=== PATIENT | male | born 1990 | race Caucasian/White ===

== ENCOUNTER 2019-04-29 18:11 | Inpatient (IN) | payer MEDICAID, OTHER ==
[~2019-04-29] VITALS: Ht 188 cm; Wt 158.8 kg
[2019-05-16 07:23] VITALS: BP 144/81
== END 2019-05-16 13:12 | disposition home or self-care (01) | DRG 374 ==
LOC: ED 21:52 → EDIP 21:55 → 3NW 22:25 → 5SO 05-13 14:14 → 3NW 05-14 13:00
PROVIDERS: ADMIT Family Medicine; ATTEND Family Medicine
PROC: 0JB83ZX Excision of Abdomen Subcutaneous Tissue and Fascia, Percutaneous Approach, Diagnostic (ICD-10-PCS; 2019-04-30)
PROC: 0DBK8ZX Excision of Ascending Colon, Via Natural or Artificial Opening Endoscopic, Diagnostic (ICD-10-PCS; principal; 2019-05-01)
PROC: 0DBN8ZX Excision of Sigmoid Colon, Via Natural or Artificial Opening Endoscopic, Diagnostic (ICD-10-PCS; 2019-05-01)
PROC: 0DB48ZX Excision of Esophagogastric Junction, Via Natural or Artificial Opening Endoscopic, Diagnostic (ICD-10-PCS; 2019-05-01)
PROC: 0JH63XZ Insertion of Tunneled Vascular Access Device into Chest Subcutaneous Tissue and Fascia, Percutaneous Approach (ICD-10-PCS; 2019-05-06)
PROC: 02HV33Z Insertion of Infusion Device into Superior Vena Cava, Percutaneous Approach (ICD-10-PCS; 2019-05-06)
PROC: B5181ZA Fluoroscopy of Superior Vena Cava using Low Osmolar Contrast, Guidance (ICD-10-PCS; 2019-05-06)
DX: C78.6 Secondary malignant neoplasm of retroperitoneum and peritoneum (principal); N17.0 Acute kidney failure with tubular necrosis; E46 Unspecified protein-calorie malnutrition; Z68.41 Body mass index [BMI] 40.0-44.9, adult; J81.1 Chronic pulmonary edema; R18.8 Other ascites; J98.11 Atelectasis; E86.0 Dehydration; D12.2 Benign neoplasm of ascending colon; E83.42 Hypomagnesemia; F10.21 Alcohol dependence, in remission; G89.3 Neoplasm related pain (acute) (chronic); I10 Essential (primary) hypertension; J20.9 Acute bronchitis, unspecified; K21.9 Gastro-esophageal reflux disease without esophagitis; K44.9 Diaphragmatic hernia without obstruction or gangrene; K64.4 Residual hemorrhoidal skin tags; K64.8 Other hemorrhoids; L40.9 Psoriasis, unspecified; N43.3 Hydrocele, unspecified; Z80.0 Family history of malignant neoplasm of digestive organs; Z87.891 Personal history of nicotine dependence; D12.5 Benign neoplasm of sigmoid colon; E87.70 Fluid overload, unspecified; C80.1 Malignant (primary) neoplasm, unspecified
CPT/HCPCS: 36415; 74022; 76870; 77001; 99285; J3490; J7620; Q0164; 0399T; 36561; 49180; 70450; 70553; 71045; 71260; 71275; 74177; 76705; 76937; 77012; 78306; 80048; 80053; 80074; 81001; 81003; 82378; 82962; 83605; 83615; 83690; 83735; 83880; 84100; 84550; 85025; 86301; 88305; 88341; 88342; 93306; 94640; 96374; 99156; 99157; A9585; G0378; J1100; J1190; J1453; J1650; J1940; J2250; J2405; J2704; J3010; J7120; J9209; Q9967; A9503; C1769; C1788; C9898; J0360; J1447; J1642; J2060; J2270; J2310; J3475; J7030; J7050; J9000; J9208

== ENCOUNTER 2019-08-18 09:00 | Inpatient (IN) | payer MEDICAID ==
[~2019-08-18] VITALS: Ht 188 cm; Wt 133.4 kg
[~2019-08-18 09:00] MED LIST: ALLO300T PO; AMOX1TAB12 PO; CEFD300C37 PO; DILT180C53 PO; DOXY100T PO; FURO40TA6 PO; GABA300C10 PO; GUAI200T37 PO; MAGN400T50 PO; METO-99 PO; OMEP20CA14 PO; ONDA4TAB7 PO; OXYC5TAB2 PO; POTA20TA6 PO; PROC10TA2 PO
[2019-08-19 09:50] VITALS: BP 121/82
[2019-08-19 11:09] LABS: MEAN CORPUSCULAR HEMOGLOBIN 32.7 pg (27.5-34.5); MEAN CORPUSCULAR HGB CONC 32.3 g/dL (33.2-36.2); MEAN CORPUSCULAR VOLUME 101.1 fL (81-97); MEAN PLATELET VOLUME 6.7 fL (7.4-10.4); PLATELET COUNT 473 x10^3/uL (130-400); RED BLOOD COUNT 3.39 x10^6/uL (4.38-5.82); RED CELL DISTRIBUTION WIDTH 22.7 % (9.4-14.8)
[2019-08-19] MEDS: SODIUM CHLORIDE 0.9% 1,000ML IV SCH ×2 (11:13→20:49)
[2019-08-19 11:20] LABS: ALANINE AMINOTRANSFERASE 12 U/L (12-78); ANION GAP 6 mmol/L (5-15); CALCIUM 8.9 mg/dL (8.5-10.1); CHLORIDE 107 mmol/L (98-107); CREATININE 0.78 mg/dL (0.7-1.3)
[2019-08-19 11:22] LABS: ALKALINE PHOSPHATASE 92 U/L (45-117); BILIRUBIN,TOTAL 0.3 mg/dL (0.2-1.0); TOTAL PROTEIN 6.8 g/dL (6.4-8.2)
[2019-08-19 11:34] LABS: BASOPHILS # (AUTO) 0.02 x10^3/uL (0-0.1); BASOPHILS % (AUTO) 0 % (0-1); EOSINOPHILS # (AUTO) 0.02 x10^3/uL (0-0.4); EOSINOPHILS % (AUTO) 0 % (1-7); LYMPHOCYTES # (AUTO) 0.64 x10^3/uL (1-3.4); LYMPHOCYTES % (AUTO) 10 % (22-44); MD MORPH REVIEW ONLY; MONOCYTES # (AUTO) 0.47 x10^3/uL (0.2-0.8); MONOCYTES % (AUTO) 7 % (2-9); NEUTROPHILS # (AUTO) 5.34 x10^3/uL (1.8-6.8); NEUTROPHILS % (AUTO) 82 % (42-75)
[2019-08-19 11:35] LABS: ANISOCYTOSIS 1+; POLYCHROMASIA 1+; STOMATOCYTES 1+; TEAR DROPS 1+
[2019-08-19 11:36] LABS: <PLATELET ESTIMATE> INCREASED; <PLT MORPHOLOGY> NORMAL PLT MORPH
[2019-08-19] MEDS ORDERED: FOSAPREPITANT 150 MG in SODIUM CHLORIDE 0.9% 145 ML IV ONE ×2 (12:30→14:30)
[2019-08-19] MEDS ORDERED: FAMOTIDINE 20 MG/2 ML IVPush SCH (12:30)
[2019-08-19] MEDS ORDERED: ONDANSETRON 16 MG, DEXAMETHASONE 12 MG in SODIUM CHLORIDE 0.9% 50 ML IVPB SCH (12:30)
[2019-08-19] MEDS ORDERED: SODIUM CHLORIDE 0.9% IVPB SCH ×4 (12:45→19:00)
[2019-08-19] MEDS ORDERED: MESNA IVPB SCH ×4 (12:45→19:00)
[2019-08-19] MEDS ORDERED: [UNRECOGNIZED DRUG - OTHER] IV SCH ×2 (12:45→14:45)
[2019-08-19] MEDS ORDERED: LACTATED RINGERS IV SCH ×2 (12:45→14:45)
[2019-08-19] MEDS ORDERED: IFOSFAMIDE IV SCH (13:00)
[2019-08-19] MEDS ORDERED: DOXORUBICIN IV SCH (13:00)
[2019-08-19] MEDS ORDERED: OMEPRAZOLE 20 MG CAPSULE.DR PO PRN (13:00)
[2019-08-19] MEDS ORDERED: SODIUM CHLORIDE 0.9% IV SCH ×2 (13:00)
[2019-08-19 13:07] VITALS: BP 132/94
[2019-08-19] MEDS: ONDANSETRON 16 MG, DEXAMETHASONE 12 MG in SODIUM CHLORIDE 0.9% 50 ML IVPB SCH (14:43)
[2019-08-19] MEDS ORDERED: LIDOCAINE 1%, 10ML ONE (14:51)
[2019-08-19] MEDS: FAMOTIDINE 20 MG/2 ML IVPush SCH (14:56)
[2019-08-19] MEDS: SODIUM CHLORIDE 0.9% 1,000 ML IV SCH ×2 (15:51→21:00)
[2019-08-19] MEDS ORDERED: SODIUM CHLORIDE 0.9% 1,000ML IV SCH (16:00)
[2019-08-19] MEDS: GABAPENTIN 300 MG CAPSULE PO SCH ×2 (16:44→21:00)
[2019-08-19] MEDS: OXYcodone IR 5MG TABLET PO PRN (16:44)
[2019-08-19] MEDS: SODIUM CHLORIDE 0.9% IV SCH ×2 (16:51→16:56)
[2019-08-19] MEDS: IFOSFAMIDE IV SCH (16:51)
[2019-08-19] MEDS: DOXORUBICIN IV SCH (16:56)
[2019-08-19 17:09] LABS: CELLS COUNTED 153
[2019-08-19 21:24] VITALS: BP 101/58
[2019-08-20] MEDS: MESNA IVPB SCH ×4 (01:00→20:00)
[2019-08-20] MEDS: SODIUM CHLORIDE 0.9% IVPB SCH ×4 (01:00→20:00)
[2019-08-20 04:00] VITALS: BP 106/56
[2019-08-20] MEDS: SODIUM CHLORIDE 0.9% 1,000 ML IV SCH ×4 (05:04→18:27)
[2019-08-20 05:28] LABS: BASOPHILS % (AUTO) 0 % (0-1); EOSINOPHILS # (AUTO) 0.02 x10^3/uL (0-0.4); EOSINOPHILS % (AUTO) 1 % (1-7); LYMPHOCYTES % (AUTO) 7 % (22-44); MD NO; MEAN CORPUSCULAR HGB CONC 33.7 g/dL (33.2-36.2); MEAN CORPUSCULAR VOLUME 101.1 fL (81-97); MEAN PLATELET VOLUME 7.2 fL (7.4-10.4); MONOCYTES # (AUTO) 0.04 x10^3/uL (0.2-0.8); MONOCYTES % (AUTO) 1 % (2-9); NEUTROPHILS # (AUTO) 2.72 x10^3/uL (1.8-6.8); NEUTROPHILS % (AUTO) 91 % (42-75); PLATELET COUNT 373 x10^3/uL (130-400); RED BLOOD COUNT 2.99 x10^6/uL (4.38-5.82); RED CELL DISTRIBUTION WIDTH 21.9 % (9.4-14.8)
[2019-08-20 05:31] LABS: ALBUMIN 2.3 g/dL (3.4-5.0); ANION GAP 5 mmol/L (5-15); CHLORIDE 112 mmol/L (98-107)
[2019-08-20 05:34] LABS: ALANINE AMINOTRANSFERASE 13 U/L (12-78); ALKALINE PHOSPHATASE 87 U/L (45-117); BILIRUBIN,TOTAL 0.3 mg/dL (0.2-1.0); CREATININE 0.65 mg/dL (0.7-1.3); TOTAL PROTEIN 5.8 g/dL (6.4-8.2)
[2019-08-20 07:10] VITALS: BP 105/49
[2019-08-20] MEDS: GABAPENTIN 300 MG CAPSULE PO SCH ×4 (08:16→20:01)
[2019-08-20] MEDS: MAGNESIUM OXIDE 400 MG TABLET PO SCH ×2 (08:34→20:00)
[2019-08-20] MEDS: OXYcodone IR 5MG TABLET PO PRN ×2 (08:34→20:01)
[2019-08-20] MEDS ORDERED: MAGNESIUM OXIDE 400 MG TABLET PO SCH (09:00)
[2019-08-20] MEDS: ENOXAPARIN 40 MG/0.4 ML SQ SCH (12:01)
[2019-08-20] MEDS: LORazepam 0.5MG TABLET PO PRN (12:01)
[2019-08-20 12:31] LABS: MICROSCOPIC NOT IND
[2019-08-20 12:34] LABS: CULTURE INDICATED? NO
[2019-08-20 13:32] VITALS: BP 113/73
[2019-08-20] MEDS: FAMOTIDINE 20 MG/2 ML IVPush SCH (14:34)
[2019-08-20] MEDS: ONDANSETRON 16 MG, DEXAMETHASONE 12 MG in SODIUM CHLORIDE 0.9% 50 ML IVPB SCH (14:44)
[2019-08-20] MEDS: SODIUM CHLORIDE 0.9% IV SCH ×2 (16:02→17:30)
[2019-08-20] MEDS: IFOSFAMIDE IV SCH (16:02)
[2019-08-20] MEDS ORDERED: [UNRECOGNIZED DRUG - OTHER] IV SCH ×2 (16:30→16:45)
[2019-08-20] MEDS ORDERED: LACTATED RINGERS IV SCH ×2 (16:30→16:45)
[2019-08-20] MEDS: DOXORUBICIN IV SCH (17:30)
[2019-08-20 19:17] VITALS: BP 107/70
[2019-08-20] MEDS ORDERED: MESNA IVPB SCH (23:00)
[2019-08-20] MEDS ORDERED: SODIUM CHLORIDE 0.9% IVPB SCH (23:00)
[2019-08-21] MEDS: SODIUM CHLORIDE 0.9% 1,000 ML IV SCH ×4 (00:04→23:58)
[2019-08-21 02:58] VITALS: BP 105/65
[2019-08-21] MEDS: GABAPENTIN 300 MG CAPSULE PO SCH ×4 (05:49→20:05)
[2019-08-21 06:10] LABS: MEAN CORPUSCULAR HEMOGLOBIN 33.5 pg (27.5-34.5); MEAN CORPUSCULAR HGB CONC 32.6 g/dL (33.2-36.2); PLATELET COUNT 419 x10^3/uL (130-400); RED BLOOD COUNT 2.92 x10^6/uL (4.38-5.82); RED CELL DISTRIBUTION WIDTH 21.9 % (9.4-14.8)
[2019-08-21 06:18] LABS: ALBUMIN 2.1 g/dL (3.4-5.0); ANION GAP 4 mmol/L (5-15); CALCIUM 7.8 mg/dL (8.5-10.1); CHLORIDE 114 mmol/L (98-107)
[2019-08-21 06:21] LABS: ALANINE AMINOTRANSFERASE 11 U/L (12-78); ALKALINE PHOSPHATASE 69 U/L (45-117); BILIRUBIN,TOTAL 0.2 mg/dL (0.2-1.0); TOTAL PROTEIN 5.2 g/dL (6.4-8.2)
[2019-08-21 06:40] LABS: MD YES
[2019-08-21 07:46] LABS: LYMPH#(MANUAL) 0.65 x10^3/uL (1-3.4); LYMPHS% (MANUAL) 10 % (22-44); MONOS#(MANUAL) 0.39 x10^3/uL (0.3-2.7); MONOS% (MANUAL) 6 % (2-9); SEG#(MANUAL) 5.46 x10^3/uL (1.8-6.8); SEGS% (MANUAL) 84 % (42-75)
[2019-08-21 07:47] LABS: <PLATELET ESTIMATE> INCREASED; <PLT MORPHOLOGY> NORMAL PLT MORPH; ANISOCYTOSIS 1+; POLYCHROMASIA 1+; TOXIC GRAN 1+
[2019-08-21 08:47] VITALS: BP 112/71
[2019-08-21] MEDS: ENOXAPARIN 40 MG/0.4 ML SQ SCH (11:39)
[2019-08-21 14:25] VITALS: BP 107/68
[2019-08-21] MEDS: ONDANSETRON 16 MG, DEXAMETHASONE 12 MG in SODIUM CHLORIDE 0.9% 50 ML IVPB SCH (14:57)
[2019-08-21] MEDS: FAMOTIDINE 20 MG/2 ML IVPush SCH (14:58)
[2019-08-21] MEDS: SODIUM CHLORIDE 0.9% IVPB SCH ×2 (15:36→19:00)
[2019-08-21] MEDS: MESNA IVPB SCH ×2 (15:36→19:00)
[2019-08-21] MEDS: SODIUM CHLORIDE 0.9% IV SCH ×2 (16:14→18:28)
[2019-08-21] MEDS: IFOSFAMIDE IV SCH (16:14)
[2019-08-21] MEDS ORDERED: LACTATED RINGERS IV ONE (17:15)
[2019-08-21] MEDS ORDERED: [UNRECOGNIZED DRUG - OTHER] IV ONE (17:15)
[2019-08-21] MEDS: DOXORUBICIN IV SCH (18:28)
[2019-08-21 19:11] VITALS: BP 124/71
[2019-08-21] MEDS: OXYcodone IR 5MG TABLET PO PRN (20:04)
[2019-08-21] MEDS ORDERED: SODIUM CHLORIDE 0.9% IVPB SCH (23:00)
[2019-08-21] MEDS ORDERED: MESNA IVPB SCH (23:00)
[2019-08-22 01:11] VITALS: BP 117/69
[2019-08-22] MEDS: GABAPENTIN 300 MG CAPSULE PO SCH ×4 (05:08→21:47)
[2019-08-22 05:43] LABS: BASOPHILS % (AUTO) 0 % (0-1); EOSINOPHILS # (AUTO) 0.04 x10^3/uL (0-0.4); EOSINOPHILS % (AUTO) 1 % (1-7); LYMPHOCYTES # (AUTO) 0.47 x10^3/uL (1-3.4); LYMPHOCYTES % (AUTO) 8 % (22-44); MD NO; MEAN CORPUSCULAR HEMOGLOBIN 33.3 pg (27.5-34.5); MEAN CORPUSCULAR HGB CONC 32.3 g/dL (33.2-36.2); MEAN CORPUSCULAR VOLUME 103.3 fL (81-97); MEAN PLATELET VOLUME 7.2 fL (7.4-10.4); MONOCYTES # (AUTO) 0.39 x10^3/uL (0.2-0.8); MONOCYTES % (AUTO) 7 % (2-9); NEUTROPHILS # (AUTO) 5.11 x10^3/uL (1.8-6.8); NEUTROPHILS % (AUTO) 85 % (42-75); PLATELET COUNT 409 x10^3/uL (130-400); RED BLOOD COUNT 2.99 x10^6/uL (4.38-5.82); RED CELL DISTRIBUTION WIDTH 21.8 % (9.4-14.8)
[2019-08-22 05:55] LABS: CHLORIDE 113 mmol/L (98-107)
[2019-08-22 06:00] LABS: ALANINE AMINOTRANSFERASE 11 U/L (12-78); ALBUMIN 2.1 g/dL (3.4-5.0); ALKALINE PHOSPHATASE 69 U/L (45-117); ANION GAP 5 mmol/L (5-15); BILIRUBIN,TOTAL 0.4 mg/dL (0.2-1.0); CALCIUM 7.6 mg/dL (8.5-10.1); CREATININE 0.49 mg/dL (0.7-1.3); TOTAL PROTEIN 4.9 g/dL (6.4-8.2)
[2019-08-22 07:49] VITALS: BP 119/61
[2019-08-22] MEDS ORDERED: MAGNESIUM OXIDE 400 MG TABLET PO SCH (09:00)
[2019-08-22] MEDS: MAGNESIUM OXIDE 400 MG TABLET PO SCH ×2 (10:09→21:47)
[2019-08-22] MEDS: OXYcodone IR 5MG TABLET PO PRN (10:12)
[2019-08-22] MEDS: FAMOTIDINE 20 MG/2 ML IVPush SCH (10:20)
[2019-08-22] MEDS: SODIUM CHLORIDE 0.9% 1,000 ML IV SCH ×2 (10:58→21:47)
[2019-08-22] MEDS: LORazepam 0.5MG TABLET PO PRN (11:14)
[2019-08-22] MEDS: ENOXAPARIN 40 MG/0.4 ML SQ SCH (12:50)
[2019-08-22 14:02] VITALS: BP 85/51
[2019-08-22 14:30] VITALS: BP 80/52
[2019-08-22 16:00] VITALS: BP 107/42
[2019-08-22] MEDS: ONDANSETRON 16 MG, DEXAMETHASONE 12 MG in SODIUM CHLORIDE 0.9% 50 ML IVPB SCH (16:16)
[2019-08-22] MEDS: SODIUM CHLORIDE 0.9% IVPB SCH ×2 (17:04→21:47)
[2019-08-22] MEDS: MESNA IVPB SCH ×2 (17:04→21:47)
[2019-08-22] MEDS: SODIUM CHLORIDE 0.9% IV SCH (17:43)
[2019-08-22] MEDS: IFOSFAMIDE IV SCH (17:43)
[2019-08-22 19:17] VITALS: BP 104/58
[2019-08-22] MEDS ORDERED: MESNA IVPB SCH (23:00)
[2019-08-22] MEDS ORDERED: SODIUM CHLORIDE 0.9% IVPB SCH (23:00)
[2019-08-23] MEDS: SODIUM CHLORIDE 0.9% 1,000 ML IV SCH ×4 (01:33→20:02)
[2019-08-23] MEDS: SODIUM CHLORIDE 0.9% IVPB SCH ×3 (01:34→20:56)
[2019-08-23] MEDS: MESNA IVPB SCH ×3 (01:34→20:56)
[2019-08-23 05:46] VITALS: BP 106/62
[2019-08-23] MEDS: GABAPENTIN 300 MG CAPSULE PO SCH ×4 (05:46→20:56)
[2019-08-23] MEDS: LORazepam 0.5MG TABLET PO PRN ×2 (05:52→16:51)
[2019-08-23 06:04] LABS: BASOPHILS # (AUTO) 0.06 x10^3/uL (0-0.1); BASOPHILS % (AUTO) 1 % (0-1); EOSINOPHILS # (AUTO) 0.02 x10^3/uL (0-0.4); EOSINOPHILS % (AUTO) 0 % (1-7); LYMPHOCYTES # (AUTO) 0.57 x10^3/uL (1-3.4); LYMPHOCYTES % (AUTO) 8 % (22-44); MD NO; MEAN CORPUSCULAR HEMOGLOBIN 33.8 pg (27.5-34.5); MEAN CORPUSCULAR HGB CONC 32.5 g/dL (33.2-36.2); MEAN PLATELET VOLUME 7.4 fL (7.4-10.4); MONOCYTES # (AUTO) 0.18 x10^3/uL (0.2-0.8); MONOCYTES % (AUTO) 3 % (2-9); NEUTROPHILS # (AUTO) 6.16 x10^3/uL (1.8-6.8); NEUTROPHILS % (AUTO) 88 % (42-75); PLATELET COUNT 398 x10^3/uL (130-400); RED BLOOD COUNT 2.86 x10^6/uL (4.38-5.82); RED CELL DISTRIBUTION WIDTH 20.1 % (9.4-14.8)
[2019-08-23 06:10] LABS: CHLORIDE 114 mmol/L (98-107)
[2019-08-23 06:21] LABS: ALANINE AMINOTRANSFERASE 12 U/L (12-78); ALBUMIN 2.1 g/dL (3.4-5.0); ALKALINE PHOSPHATASE 67 U/L (45-117); ANION GAP 5 mmol/L (5-15); BILIRUBIN,TOTAL 0.5 mg/dL (0.2-1.0); CALCIUM 7.8 mg/dL (8.5-10.1); CREATININE 0.48 mg/dL (0.7-1.3); TOTAL PROTEIN 4.9 g/dL (6.4-8.2)
[2019-08-23 07:00] VITALS: BP 107/75
[2019-08-23] MEDS: MAGNESIUM OXIDE 400 MG TABLET PO SCH (08:44)
[2019-08-23] MEDS: ENOXAPARIN 40 MG/0.4 ML SQ SCH (11:14)
[2019-08-23] MEDS: OXYcodone IR 5MG TABLET PO PRN (11:21)
[2019-08-23 12:34] VITALS: BP 111/64
[2019-08-23] MEDS: FAMOTIDINE 20 MG/2 ML IVPush SCH (15:00)
[2019-08-23] MEDS: ONDANSETRON 16 MG, DEXAMETHASONE 12 MG in SODIUM CHLORIDE 0.9% 50 ML IVPB SCH (15:05)
[2019-08-23] MEDS: SODIUM CHLORIDE 0.9% IV SCH (16:51)
[2019-08-23] MEDS: IFOSFAMIDE IV SCH (16:51)
[2019-08-23 19:58] VITALS: BP 103/65
[2019-08-24 01:07] VITALS: BP 109/64
[2019-08-24] MEDS: MESNA IVPB SCH (01:18)
[2019-08-24] MEDS: SODIUM CHLORIDE 0.9% IVPB SCH (01:18)
[2019-08-24] MEDS: GABAPENTIN 300 MG CAPSULE PO SCH ×2 (05:36→11:27)
[2019-08-24] MEDS: LORazepam 0.5MG TABLET PO PRN (05:36)
[2019-08-24 05:53] LABS: MEAN CORPUSCULAR HEMOGLOBIN 33.5 pg (27.5-34.5); MEAN CORPUSCULAR HGB CONC 32.7 g/dL (33.2-36.2); MEAN CORPUSCULAR VOLUME 102.5 fL (81-97); MEAN PLATELET VOLUME 7.1 fL (7.4-10.4); PLATELET COUNT 377 x10^3/uL (130-400); RED BLOOD COUNT 2.87 x10^6/uL (4.38-5.82); RED CELL DISTRIBUTION WIDTH 19.6 % (9.4-14.8)
[2019-08-24 05:59] LABS: ALBUMIN 2.2 g/dL (3.4-5.0); ANION GAP 6 mmol/L (5-15); CALCIUM 7.8 mg/dL (8.5-10.1); CHLORIDE 111 mmol/L (98-107)
[2019-08-24 06:03] LABS: ALANINE AMINOTRANSFERASE 12 U/L (12-78); ALKALINE PHOSPHATASE 68 U/L (45-117); BILIRUBIN,TOTAL 0.4 mg/dL (0.2-1.0); CREATININE 0.54 mg/dL (0.7-1.3); TOTAL PROTEIN 5.1 g/dL (6.4-8.2)
[2019-08-24 06:10] LABS: BASOPHILS # (AUTO) 0.09 x10^3/uL (0-0.1); BASOPHILS % (AUTO) 2 % (0-1); EOSINOPHILS # (AUTO) 0.03 x10^3/uL (0-0.4); EOSINOPHILS % (AUTO) 1 % (1-7); LYMPHOCYTES # (AUTO) 0.44 x10^3/uL (1-3.4); LYMPHOCYTES % (AUTO) 8 % (22-44); MD SCAN; MONOCYTES # (AUTO) 0.04 x10^3/uL (0.2-0.8); MONOCYTES % (AUTO) 1 % (2-9); NEUTROPHILS # (AUTO) 4.96 x10^3/uL (1.8-6.8); NEUTROPHILS % (AUTO) 89 % (42-75)
[2019-08-24] MEDS: SODIUM CHLORIDE 0.9% 1,000 ML IV SCH ×2 (07:26→11:28)
[2019-08-24 07:46] VITALS: BP 110/61
[2019-08-24] MEDS ORDERED: ONDANSETRON 2MG/ML, 2ML IVPush PRN (08:00)
[2019-08-24] MEDS ORDERED: LIDOCAINE 1%, 10ML ONE (10:07)
[2019-08-24] MEDS: ENOXAPARIN 40 MG/0.4 ML SQ SCH (11:27)
[2019-08-24 14:32] VITALS: BP 105/57
== END 2019-08-24 14:43 | disposition home or self-care (01) | DRG 343 ==
LOC: 4NW 08-19 09:23
PROVIDERS: ADMIT Internal Medicine Hematology & Oncology; ATTEND Internal Medicine Hematology & Oncology
PROC: 0W9G3ZZ Drainage of Peritoneal Cavity, Percutaneous Approach (ICD-10-PCS; principal; 2019-08-20)
PROC: 0W9G3ZZ Drainage of Peritoneal Cavity, Percutaneous Approach (ICD-10-PCS; 2019-08-24)
DX: C49.9 Malignant neoplasm of connective and soft tissue, unspecified (principal); C78.6 Secondary malignant neoplasm of retroperitoneum and peritoneum; C79.89 Secondary malignant neoplasm of other specified sites; E46 Unspecified protein-calorie malnutrition; R18.8 Other ascites; E83.42 Hypomagnesemia; K21.9 Gastro-esophageal reflux disease without esophagitis; D64.9 Anemia, unspecified; Z80.0 Family history of malignant neoplasm of digestive organs; Z79.899 Other long term (current) drug therapy
CPT/HCPCS: J3490 ×2; 36415; 49083; 80053; 81003; 83735; 85025; 88112; 88305; 89051; 93005; 93306; G0378; J1100; J1190; J1453; J1650; J2405; J7120; J9000; J9209; J7030; J7050; J9208

== ENCOUNTER 2019-09-14 08:00 | Inpatient (IN) | payer MEDICAID ==
[~2019-09-14] VITALS: Ht 188 cm; Wt 115.8 kg
[2019-09-14 09:52] VITALS: BP 118/80
[2019-09-14] MEDS ORDERED: SODIUM CHLORIDE 0.9% 1,000 ML IV ONE (10:00)
[2019-09-14 10:12] LABS: ALANINE AMINOTRANSFERASE 16 U/L (12-78); ALBUMIN 2.1 g/dL (3.4-5.0); ANION GAP 5 mmol/L (5-15); CALCIUM 8.3 mg/dL (8.5-10.1); CHLORIDE 109 mmol/L (98-107); CREATININE 0.62 mg/dL (0.7-1.3)
[2019-09-14 10:14] LABS: ALKALINE PHOSPHATASE 67 U/L (45-117); BILIRUBIN,TOTAL 0.2 mg/dL (0.2-1.0); TOTAL PROTEIN 5.6 g/dL (6.4-8.2)
[2019-09-14 10:16] LABS: BASOPHILS # (AUTO) 0.02 x10^3/uL (0-0.1); BASOPHILS % (AUTO) 0 % (0-1); EOSINOPHILS % (AUTO) 0 % (1-7); LYMPHOCYTES # (AUTO) 0.66 x10^3/uL (1-3.4); LYMPHOCYTES % (AUTO) 8 % (22-44); MD NO; MEAN CORPUSCULAR HEMOGLOBIN 33.5 pg (27.5-34.5); MEAN CORPUSCULAR HGB CONC 32.3 g/dL (33.2-36.2); MEAN CORPUSCULAR VOLUME 103.5 fL (81-97); MEAN PLATELET VOLUME 6.6 fL (7.4-10.4); MONOCYTES # (AUTO) 0.47 x10^3/uL (0.2-0.8); MONOCYTES % (AUTO) 6 % (2-9); NEUTROPHILS % (AUTO) 86 % (42-75); PLATELET COUNT 594 x10^3/uL (130-400); RED BLOOD COUNT 2.87 x10^6/uL (4.38-5.82); RED CELL DISTRIBUTION WIDTH 20.2 % (9.4-14.8)
[2019-09-14] MEDS ORDERED: OMEPRAZOLE 20 MG CAPSULE.DR PO PRN (11:30)
[2019-09-14] MEDS ORDERED: OXYcodone 5 MG/5 ML ORAL.SOL UDC PO PRN (11:30)
[2019-09-14] MEDS: ENOXAPARIN 40 MG/0.4 ML SQ SCH (11:41)
[2019-09-14 12:48] VITALS: BP 113/76
[2019-09-14] MEDS: SODIUM CHLORIDE 0.9% 1,000 ML IV SCH (13:57)
[2019-09-14] MEDS: ONDANSETRON 16 MG, DEXAMETHASONE 12 MG in SODIUM CHLORIDE 0.9% 50 ML IVPB SCH (13:57)
[2019-09-14] MEDS: MESNA IVPB SCH ×3 (14:40→23:32)
[2019-09-14] MEDS: SODIUM CHLORIDE 0.9% IVPB SCH ×4 (14:40→23:32)
[2019-09-14] MEDS: IFOSFAMIDE IV SCH (16:00)
[2019-09-14] MEDS: SODIUM CHLORIDE 0.9% IV SCH (16:00)
[2019-09-14] MEDS ORDERED: SODIUM CHLORIDE 0.9% 1,000 ML IV SCH ×2 (18:00)
[2019-09-14] MEDS ORDERED: ETOPOSIDE IVPB SCH (18:00)
[2019-09-14] MEDS ORDERED: SODIUM CHLORIDE 0.9% IVPB SCH (18:00)
[2019-09-14 18:48] VITALS: BP 153/77
[2019-09-14] MEDS: ETOPOSIDE IVPB SCH (21:44)
[2019-09-15 03:00] VITALS: BP 124/74
[2019-09-15 04:46] LABS: BASOPHILS # (AUTO) 0.01 x10^3/uL (0-0.1); BASOPHILS % (AUTO) 0 % (0-1); EOSINOPHILS # (AUTO) 0.06 x10^3/uL (0-0.4); EOSINOPHILS % (AUTO) 1 % (1-7); LYMPHOCYTES # (AUTO) 0.39 x10^3/uL (1-3.4); LYMPHOCYTES % (AUTO) 6 % (22-44); MD NO; MEAN CORPUSCULAR HEMOGLOBIN 34.3 pg (27.5-34.5); MEAN CORPUSCULAR HGB CONC 32.7 g/dL (33.2-36.2); MEAN PLATELET VOLUME 6.8 fL (7.4-10.4); MONOCYTES # (AUTO) 0.18 x10^3/uL (0.2-0.8); MONOCYTES % (AUTO) 3 % (2-9); NEUTROPHILS # (AUTO) 5.91 x10^3/uL (1.8-6.8); NEUTROPHILS % (AUTO) 90 % (42-75); PLATELET COUNT 538 x10^3/uL (130-400); RED BLOOD COUNT 2.64 x10^6/uL (4.38-5.82); RED CELL DISTRIBUTION WIDTH 19.6 % (9.4-14.8)
[2019-09-15 04:59] LABS: ALANINE AMINOTRANSFERASE 17 U/L (12-78); ALBUMIN 1.8 g/dL (3.4-5.0); ANION GAP 5 mmol/L (5-15); CALCIUM 7.7 mg/dL (8.5-10.1); CHLORIDE 113 mmol/L (98-107); CREATININE 0.59 mg/dL (0.7-1.3)
[2019-09-15 05:01] LABS: ALKALINE PHOSPHATASE 61 U/L (45-117); BILIRUBIN,TOTAL 0.3 mg/dL (0.2-1.0); TOTAL PROTEIN 5.1 g/dL (6.4-8.2)
[2019-09-15] MEDS: OXYcodone IR 5MG TABLET PO PRN ×2 (06:14→14:34)
[2019-09-15 06:52] VITALS: BP 111/71
[2019-09-15] MEDS: SODIUM CHLORIDE 0.9% 1,000 ML IV SCH ×4 (08:53→22:03)
[2019-09-15] MEDS: GABAPENTIN 300 MG CAPSULE PO PRN ×2 (08:53→19:58)
[2019-09-15] MEDS ORDERED: LIDOCAINE 1%, 10ML ONE (09:28)
[2019-09-15] MEDS: ONDANSETRON 2MG/ML, 2ML IVPush PRN (09:36)
[2019-09-15 11:24] LABS: MICROSCOPIC NOT IND
[2019-09-15] MEDS ORDERED: ALBUMIN HUMAN 25% IV ONE (12:00)
[2019-09-15 14:06] VITALS: BP 101/60
[2019-09-15] MEDS: ENOXAPARIN 40 MG/0.4 ML SQ SCH (14:27)
[2019-09-15] MEDS: ONDANSETRON 16 MG, DEXAMETHASONE 12 MG in SODIUM CHLORIDE 0.9% 50 ML IVPB SCH (14:27)
[2019-09-15] MEDS: SODIUM CHLORIDE 0.9% IVPB SCH ×4 (15:04→23:14)
[2019-09-15] MEDS: MESNA IVPB SCH ×3 (15:04→23:14)
[2019-09-15] MEDS: IFOSFAMIDE IV SCH (15:56)
[2019-09-15] MEDS: SODIUM CHLORIDE 0.9% IV SCH (15:56)
[2019-09-15 19:36] VITALS: BP 103/63
[2019-09-15] MEDS: ETOPOSIDE IVPB SCH (20:50)
[2019-09-16 01:44] VITALS: BP 103/66
[2019-09-16 04:51] LABS: BASOPHILS # (AUTO) 0.01 x10^3/uL (0-0.1); BASOPHILS % (AUTO) 0 % (0-1); EOSINOPHILS # (AUTO) 0.01 x10^3/uL (0-0.4); EOSINOPHILS % (AUTO) 0 % (1-7); LYMPHOCYTES % (AUTO) 11 % (22-44); MD NO; MEAN CORPUSCULAR HEMOGLOBIN 33.9 pg (27.5-34.5); MEAN CORPUSCULAR HGB CONC 32.1 g/dL (33.2-36.2); MEAN CORPUSCULAR VOLUME 105.6 fL (81-97); MEAN PLATELET VOLUME 6.6 fL (7.4-10.4); MONOCYTES # (AUTO) 0.27 x10^3/uL (0.2-0.8); MONOCYTES % (AUTO) 6 % (2-9); NEUTROPHILS # (AUTO) 3.99 x10^3/uL (1.8-6.8); NEUTROPHILS % (AUTO) 84 % (42-75); PLATELET COUNT 425 x10^3/uL (130-400); RED BLOOD COUNT 2.65 x10^6/uL (4.38-5.82); RED CELL DISTRIBUTION WIDTH 19.2 % (9.4-14.8)
[2019-09-16 04:59] LABS: ALBUMIN 2.4 g/dL (3.4-5.0); ANION GAP 7 mmol/L (5-15); CALCIUM 7.7 mg/dL (8.5-10.1); CHLORIDE 114 mmol/L (98-107)
[2019-09-16 05:03] LABS: ALANINE AMINOTRANSFERASE 14 U/L (12-78); ALKALINE PHOSPHATASE 51 U/L (45-117); BILIRUBIN,TOTAL 0.3 mg/dL (0.2-1.0); CREATININE 0.61 mg/dL (0.7-1.3)
[2019-09-16 06:08] LABS: MICROSCOPIC NOT IND
[2019-09-16 07:16] VITALS: BP 106/63
[2019-09-16] MEDS: SODIUM CHLORIDE 0.9% 1,000 ML IV SCH ×4 (10:38→21:55)
[2019-09-16] MEDS: OXYcodone IR 5MG TABLET PO PRN ×2 (10:39→18:31)
[2019-09-16 12:30] VITALS: BP 107/64
[2019-09-16] MEDS: ONDANSETRON 16 MG, DEXAMETHASONE 12 MG in SODIUM CHLORIDE 0.9% 50 ML IVPB SCH (14:02)
[2019-09-16] MEDS: MESNA IVPB SCH ×3 (14:44→22:59)
[2019-09-16] MEDS: SODIUM CHLORIDE 0.9% IVPB SCH ×4 (14:44→22:59)
[2019-09-16] MEDS: ENOXAPARIN 40 MG/0.4 ML SQ SCH (14:51)
[2019-09-16] MEDS: SODIUM CHLORIDE 0.9% IV SCH (15:16)
[2019-09-16] MEDS: IFOSFAMIDE IV SCH (15:16)
[2019-09-16] MEDS: ETOPOSIDE IVPB SCH (20:24)
[2019-09-16 21:55] VITALS: BP 122/76
[2019-09-16 23:57] VITALS: BP 114/75
[2019-09-17 04:14] LABS: BASOPHILS % (AUTO) 2 % (0-1); EOSINOPHILS % (AUTO) 0 % (1-7); LYMPHOCYTES # (AUTO) 0.45 x10^3/uL (1-3.4); LYMPHOCYTES % (AUTO) 10 % (22-44); MD NO; MEAN CORPUSCULAR HGB CONC 32.3 g/dL (33.2-36.2); MEAN CORPUSCULAR VOLUME 105.1 fL (81-97); MEAN PLATELET VOLUME 6.7 fL (7.4-10.4); MONOCYTES # (AUTO) 0.21 x10^3/uL (0.2-0.8); MONOCYTES % (AUTO) 5 % (2-9); NEUTROPHILS # (AUTO) 3.71 x10^3/uL (1.8-6.8); NEUTROPHILS % (AUTO) 83 % (42-75); PLATELET COUNT 444 x10^3/uL (130-400); RED CELL DISTRIBUTION WIDTH 18.8 % (9.4-14.8)
[2019-09-17 04:22] LABS: MICROSCOPIC NOT IND
[2019-09-17 04:25] LABS: ALANINE AMINOTRANSFERASE 15 U/L (12-78); ALBUMIN 2.1 g/dL (3.4-5.0); ANION GAP 4 mmol/L (5-15); CALCIUM 7.8 mg/dL (8.5-10.1); CHLORIDE 114 mmol/L (98-107)
[2019-09-17 04:27] LABS: ALKALINE PHOSPHATASE 52 U/L (45-117); BILIRUBIN,TOTAL 0.3 mg/dL (0.2-1.0); TOTAL PROTEIN 5.1 g/dL (6.4-8.2)
[2019-09-17 06:49] VITALS: BP 122/77
[2019-09-17] MEDS: ONDANSETRON 2MG/ML, 2ML IVPush PRN (10:17)
[2019-09-17] MEDS: SODIUM CHLORIDE 0.9% 1,000 ML IV SCH ×3 (10:17→18:36)
[2019-09-17] MEDS: OXYcodone IR 5MG TABLET PO PRN (10:18)
[2019-09-17 12:42] VITALS: BP 121/73
[2019-09-17] MEDS: ONDANSETRON 16 MG, DEXAMETHASONE 12 MG in SODIUM CHLORIDE 0.9% 50 ML IVPB SCH (13:51)
[2019-09-17] MEDS: MESNA IVPB SCH ×3 (14:31→23:03)
[2019-09-17] MEDS: SODIUM CHLORIDE 0.9% IVPB SCH ×4 (14:31→23:03)
[2019-09-17] MEDS: ENOXAPARIN 40 MG/0.4 ML SQ SCH (14:33)
[2019-09-17] MEDS: IFOSFAMIDE IV SCH (15:26)
[2019-09-17] MEDS: SODIUM CHLORIDE 0.9% IV SCH (15:26)
[2019-09-17] MEDS: ETOPOSIDE IVPB SCH (20:27)
[2019-09-17 20:53] VITALS: BP 114/71
[2019-09-18 00:43] VITALS: BP 118/76
[2019-09-18 06:49] LABS: MEAN CORPUSCULAR HEMOGLOBIN 34.1 pg (27.5-34.5); MEAN CORPUSCULAR HGB CONC 32.4 g/dL (33.2-36.2); MEAN CORPUSCULAR VOLUME 105.1 fL (81-97); MEAN PLATELET VOLUME 6.7 fL (7.4-10.4); PLATELET COUNT 404 x10^3/uL (130-400); RED BLOOD COUNT 2.72 x10^6/uL (4.38-5.82); RED CELL DISTRIBUTION WIDTH 18.3 % (9.4-14.8)
[2019-09-18 06:53] LABS: BASOPHILS # (AUTO) 0.07 x10^3/uL (0-0.1); BASOPHILS % (AUTO) 2 % (0-1); EOSINOPHILS # (AUTO) 0.02 x10^3/uL (0-0.4); EOSINOPHILS % (AUTO) 0 % (1-7); LYMPHOCYTES # (AUTO) 0.41 x10^3/uL (1-3.4); LYMPHOCYTES % (AUTO) 10 % (22-44); MD NO; MONOCYTES # (AUTO) 0.11 x10^3/uL (0.2-0.8); MONOCYTES % (AUTO) 3 % (2-9); NEUTROPHILS # (AUTO) 3.57 x10^3/uL (1.8-6.8); NEUTROPHILS % (AUTO) 86 % (42-75)
[2019-09-18 06:58] LABS: ALANINE AMINOTRANSFERASE 12 U/L (12-78); ANION GAP 4 mmol/L (5-15); CALCIUM 8.1 mg/dL (8.5-10.1); CHLORIDE 116 mmol/L (98-107); CREATININE 0.55 mg/dL (0.7-1.3)
[2019-09-18 07:00] LABS: ALKALINE PHOSPHATASE 50 U/L (45-117); BILIRUBIN,TOTAL 0.5 mg/dL (0.2-1.0); TOTAL PROTEIN 4.8 g/dL (6.4-8.2)
[2019-09-18 07:05] VITALS: BP 131/79
[2019-09-18] MEDS: OXYcodone IR 5MG TABLET PO PRN ×2 (07:15→13:16)
[2019-09-18] MEDS: SODIUM CHLORIDE 0.9% 1,000 ML IV SCH ×2 (09:24→22:07)
[2019-09-18 13:00] VITALS: BP 121/75
[2019-09-18 13:25] LABS: MICROSCOPIC NOT IND
[2019-09-18] MEDS: ONDANSETRON 16 MG, DEXAMETHASONE 12 MG in SODIUM CHLORIDE 0.9% 50 ML IVPB SCH (14:41)
[2019-09-18] MEDS: ENOXAPARIN 40 MG/0.4 ML SQ SCH (14:42)
[2019-09-18 19:10] VITALS: BP 100/68
[2019-09-18] MEDS: ETOPOSIDE IVPB SCH (20:14)
[2019-09-18] MEDS: SODIUM CHLORIDE 0.9% IVPB SCH (20:14)
[2019-09-18] MEDS: GABAPENTIN 300 MG CAPSULE PO PRN (21:03)
[2019-09-19 00:25] VITALS: BP 120/71
[2019-09-19 04:57] LABS: MICROSCOPIC AUTO
[2019-09-19 08:01] VITALS: BP 108/66
[2019-09-19 08:14] LABS: BASOPHILS # (AUTO) 0.02 x10^3/uL (0-0.1); BASOPHILS % (AUTO) 1 % (0-1); EOSINOPHILS # (AUTO) 0.02 x10^3/uL (0-0.4); EOSINOPHILS % (AUTO) 1 % (1-7); LYMPHOCYTES # (AUTO) 0.47 x10^3/uL (1-3.4); LYMPHOCYTES % (AUTO) 11 % (22-44); MD NO; MEAN CORPUSCULAR HEMOGLOBIN 33.3 pg (27.5-34.5); MEAN CORPUSCULAR HGB CONC 32.5 g/dL (33.2-36.2); MEAN CORPUSCULAR VOLUME 102.7 fL (81-97); MEAN PLATELET VOLUME 6.4 fL (7.4-10.4); MONOCYTES # (AUTO) 0.04 x10^3/uL (0.2-0.8); MONOCYTES % (AUTO) 1 % (2-9); NEUTROPHILS # (AUTO) 3.64 x10^3/uL (1.8-6.8); NEUTROPHILS % (AUTO) 87 % (42-75); PLATELET COUNT 414 x10^3/uL (130-400); RED BLOOD COUNT 2.73 x10^6/uL (4.38-5.82); RED CELL DISTRIBUTION WIDTH 17.7 % (9.4-14.8)
[2019-09-19 08:24] LABS: ALBUMIN 2.1 g/dL (3.4-5.0); ANION GAP 5 mmol/L (5-15); CALCIUM 8.3 mg/dL (8.5-10.1); CHLORIDE 114 mmol/L (98-107)
[2019-09-19 08:28] LABS: ALANINE AMINOTRANSFERASE 14 U/L (12-78); ALKALINE PHOSPHATASE 54 U/L (45-117); BILIRUBIN,TOTAL 0.4 mg/dL (0.2-1.0); CREATININE 0.59 mg/dL (0.7-1.3)
== END 2019-09-19 12:30 | disposition home or self-care (01) | DRG 696 ==
LOC: 4NW 08:51
PROVIDERS: ADMIT Internal Medicine Hematology & Oncology; ATTEND Internal Medicine Hematology & Oncology
PROC: 0W9G3ZZ Drainage of Peritoneal Cavity, Percutaneous Approach (ICD-10-PCS; principal; 2019-09-15)
DX: Z51.11 Encounter for antineoplastic chemotherapy (principal); D64.81 Anemia due to antineoplastic chemotherapy; R18.8 Other ascites; D49.89 Neoplasm of unspecified behavior of other specified sites
CPT/HCPCS: 36415; 49083; 80053; 81001; 81003; 83735; 85025; 93005; G0378; J1100; J1650; J2405; J9209; P9047; J7030; J7040; J9181; J9208

== ENCOUNTER → 2019-09-29 | Outpatient (CLI) | payer MEDICAID ==
[~2019-09-29] MED LIST changes: +ALBUMIN HUMAN 25%, 25GM/100ML ONE; +LIDOCAINE 1%, 10ML ONE
== END | disposition home or self-care (01) ==
LOC: RAD 10:56
PROVIDERS: ATTEND Internal Medicine Hematology & Oncology
DX: C49.4 Malignant neoplasm of connective and soft tissue of abdomen (principal); R18.0 Malignant ascites
CPT/HCPCS: 49083; J3490; P9047

== ENCOUNTER → 2019-10-21 | Outpatient (CLI) | payer MEDICAID | END | disposition home or self-care (01) | LOC: RAD 10:16 | PROVIDERS: ATTEND Internal Medicine Hematology & Oncology | DX: C76.2 Malignant neoplasm of abdomen (principal); R18.0 Malignant ascites | CPT/HCPCS: 49083; J3490; P9047 ==

== ENCOUNTER → 2019-12-13 | Outpatient (CLI) | payer MEDICAID ==
[~2019-12-13] MED LIST changes: -ALBUMIN HUMAN 25%, 25GM/100ML ONE; -LIDOCAINE 1%, 10ML ONE; -OMEP20CA14 PO; +OMEP20CA20 PO; +OMNIPAQUE 350 MG/ML, 100ML BOTTLE ONE
== END | disposition home or self-care (01) ==
LOC: CFH 13:00
PROVIDERS: ATTEND Internal Medicine Hematology & Oncology
DX: C49.4 Malignant neoplasm of connective and soft tissue of abdomen (principal); K76.9 Liver disease, unspecified; R59.1 Generalized enlarged lymph nodes; R19.02 Left upper quadrant abdominal swelling, mass and lump
CPT/HCPCS: 74160; Q9967

== ENCOUNTER → 2019-12-30 | Outpatient (CLI) | payer MEDICAID ==
[~2019-12-30] MED LIST changes: +MORP15TA PO; +OLAN10TA9 PO; -OMNIPAQUE 350 MG/ML, 100ML BOTTLE ONE; +OMNIPAQUE 350 MG/ML, 75ML BOTTLE ONE
== END | disposition home or self-care (01) ==
LOC: RAD 10:52
PROVIDERS: ATTEND Internal Medicine Hematology & Oncology
DX: G89.3 Neoplasm related pain (acute) (chronic) (principal); C49.4 Malignant neoplasm of connective and soft tissue of abdomen; J92.9 Pleural plaque without asbestos; R59.9 Enlarged lymph nodes, unspecified; R91.8 Other nonspecific abnormal finding of lung field; Z79.899 Other long term (current) drug therapy
CPT/HCPCS: 71260; 78306; A9503; Q9967

== ENCOUNTER → 2020-03-16 | Outpatient (CLI) | payer MEDICAID ==
[~2020-03-16] MED LIST changes: +COLE1TAB2 PO; +DIPH1TAB PO; +LACT1CAP11 PO; +LOPE-114 PO; +OMNIPAQUE 350 MG/ML, 100ML BOTTLE ONE; -OMNIPAQUE 350 MG/ML, 75ML BOTTLE ONE; +PEPP90CA PO
== END | disposition home or self-care (01) ==
LOC: RAD 10:55
PROVIDERS: ATTEND Internal Medicine Hematology & Oncology
DX: C49.4 Malignant neoplasm of connective and soft tissue of abdomen (principal); C78.7 Secondary malignant neoplasm of liver and intrahepatic bile duct; C48.2 Malignant neoplasm of peritoneum, unspecified; M85.88 Other specified disorders of bone density and structure, other site; J98.4 Other disorders of lung
CPT/HCPCS: 71260; 74177; 78306; A9503; Q9967

== ENCOUNTER 2020-04-16 18:14 | Inpatient (IN) | payer MEDICAID ==
[~2020-04-16] VITALS: Ht 188 cm; Wt 111.2 kg
[~2020-04-16 18:14] MED LIST changes: -OMNIPAQUE 350 MG/ML, 100ML BOTTLE ONE
[2020-04-16] MEDS ORDERED: ONDANSETRON 2MG/ML, 2ML IVPush ONE (19:00)
[2020-04-16] MEDS ORDERED: SODIUM CHLORIDE 0.9% 1,000ML IVBOLUS ONE ×2 (19:00→20:00)
[2020-04-16] MEDS ORDERED: ONDANSETRON 2MG/ML, 2ML ONE (19:01)
--- NOTE | 2020-04-16 19:10 | NUR ---
MEDICATIONS GIVEN, FLUIDS INTITIATED. TOLERATED WELL. WILL ASK ABOUT REGLAN, THIS IS PATIENT'S HOME MEDICATION.
[2020-04-16] MEDS ORDERED: LORazepam 1MG TABLET ONE (19:11)
[2020-04-16] MEDS ORDERED: DIPHENHYDRAMINE 50 MG/ML, 1ML ONE (19:20)
[2020-04-16 19:21] LABS: MEAN CORPUSCULAR HEMOGLOBIN 33.7 pg (27.5-34.5); MEAN CORPUSCULAR HGB CONC 33.4 g/dL (33.2-36.2); MEAN CORPUSCULAR VOLUME 101.1 fL (81-97); MEAN PLATELET VOLUME 6.7 fL (7.4-10.4); PLATELET COUNT 417 x10^3/uL (130-400); RED BLOOD COUNT 4.18 x10^6/uL (4.38-5.82); RED CELL DISTRIBUTION WIDTH 22.1 % (9.4-14.8)
[2020-04-16] MEDS ORDERED: METOCLOPRAMIDE 5 MG/ML, 2ML ONE (19:21)
[2020-04-16 19:30] LABS: ALANINE AMINOTRANSFERASE 14 U/L (12-78); ALBUMIN 3.3 g/dL (3.4-5.0); ANION GAP 14 mmol/L (5-15); CALCIUM 9.3 mg/dL (8.5-10.1); CHLORIDE 91 mmol/L (98-107); CREATININE 3.05 mg/dL (0.7-1.3)
[2020-04-16] MEDS ORDERED: DIPHENHYDRAMINE 50 MG/ML, 1ML IVPush ONE (19:30)
[2020-04-16] MEDS ORDERED: METOCLOPRAMIDE 5 MG/ML, 2ML IVPush ONE (19:30)
[2020-04-16] MEDS ORDERED: LORazepam 1MG TABLET PO ONE (19:30)
[2020-04-16 19:32] LABS: ALKALINE PHOSPHATASE 111 U/L (45-117); BILIRUBIN,TOTAL 0.5 mg/dL (0.2-1.0); TOTAL PROTEIN 8.5 g/dL (6.4-8.2)
[2020-04-16 19:44] LABS: MD YES
[2020-04-16 19:48] LABS: BAND#(MANUAL) 1.68 x10^3/uL; BANDS%(MANUAL) 24 % (0-7); LYMPH#(MANUAL) 0.49 x10^3/uL (1-3.4); LYMPHS% (MANUAL) 7 % (22-44); MONOS#(MANUAL) 0.84 x10^3/uL (0.3-2.7); MONOS% (MANUAL) 12 % (2-9); SEG#(MANUAL) 3.99 x10^3/uL (1.8-6.8); SEGS% (MANUAL) 57 % (42-75)
[2020-04-16 19:51] LABS: <PLATELET ESTIMATE> INCREASED; ANISOCYTOSIS 1+; TOXIC GRAN 1+
[2020-04-16 19:53] LABS: <PLT MORPHOLOGY> NORMAL PLT MORPH; PMNS WITH VACUOLES 1+
[2020-04-16] MEDS ORDERED: SODIUM CHLORIDE 0.9% 1,000 ML IV SCH (20:28)
--- NOTE | 2020-04-16 20:49 | NUR ---
REPORT CALLED TO MARY BARAJAS. PT AWAITING TRANSPORT AT THIS TIME. CALL LIGHT IN REACH.
[2020-04-16] MEDS ORDERED: LACTATED RINGERS 1,000 ML IVBOLUS ONE (22:00)
[2020-04-16] MEDS: ACETAMINOPHEN 325 MG TABLET PO PRN (22:11)
[2020-04-16] MEDS: ONDANSETRON 2MG/ML, 2ML IVPush PRN (22:12)
[2020-04-16] MEDS: morphine SULFATE 10 MG/ML, 1ML IVPush PRN (22:13)
[2020-04-16 23:08] LABS: ANION GAP 11 mmol/L (5-15); CALCIUM 8.4 mg/dL (8.5-10.1); CHLORIDE 94 mmol/L (98-107); CREATININE 2.62 mg/dL (0.7-1.3)
[2020-04-16 23:25] VITALS: BP 122/85
[2020-04-17 00:37] LABS: CLOSTRIDIUM DIFFICILE ANTIGEN NEGATIVE; CLOSTRIDIUM DIFFICILE TOXIN NEGATIVE (Negative)
[2020-04-17 02:00] VITALS: BP 116/82
[2020-04-17 02:59] LABS: MEAN CORPUSCULAR HEMOGLOBIN 33.5 pg (27.5-34.5); MEAN CORPUSCULAR HGB CONC 32.8 g/dL (33.2-36.2); MEAN CORPUSCULAR VOLUME 102.1 fL (81-97); MEAN PLATELET VOLUME 6.6 fL (7.4-10.4); PLATELET COUNT 392 x10^3/uL (130-400); RED BLOOD COUNT 3.92 x10^6/uL (4.38-5.82); RED CELL DISTRIBUTION WIDTH 21.8 % (9.4-14.8)
[2020-04-17 03:06] LABS: ANION GAP 13 mmol/L (5-15); CALCIUM 8.8 mg/dL (8.5-10.1); CHLORIDE 95 mmol/L (98-107); CREATININE 2.36 mg/dL (0.7-1.3)
[2020-04-17 03:35] LABS: MD YES
[2020-04-17 03:37] LABS: BAND#(MANUAL) 0.55 x10^3/uL; BANDS%(MANUAL) 10 % (0-7); EOS#(MANUAL) 0.17 x10^3/uL (0.0-0.4); EOS% (MANUAL) 3 % (1-7); LYMPH#(MANUAL) 0.61 x10^3/uL (1-3.4); LYMPHS% (MANUAL) 11 % (22-44); MONOS#(MANUAL) 0.61 x10^3/uL (0.3-2.7); MONOS% (MANUAL) 11 % (2-9); SEG#(MANUAL) 3.58 x10^3/uL (1.8-6.8); SEGS% (MANUAL) 65 % (42-75)
[2020-04-17 03:38] LABS: <PLATELET ESTIMATE> ADEQUATE; <PLT MORPHOLOGY> NORMAL PLT MORPH; ANISOCYTOSIS 1+
[2020-04-17] MEDS: ONDANSETRON 2MG/ML, 2ML IVPush PRN (05:41)
[2020-04-17] MEDS: morphine SULFATE 10 MG/ML, 1ML IVPush PRN ×4 (05:41→20:44)
[2020-04-17 06:45] VITALS: BP 115/75
[2020-04-17 07:21] LABS: ANION GAP 14 mmol/L (5-15); CALCIUM 8.6 mg/dL (8.5-10.1); CHLORIDE 95 mmol/L (98-107); CREATININE 2.19 mg/dL (0.7-1.3)
[2020-04-17] MEDS ORDERED: POTASSIUM CHLORIDE 40 MEQ in SODIUM CHLORIDE 0.9% 1,000 ML IV SCH ×3 (09:00→20:28)
[2020-04-17] MEDS: LOPERAMIDE 2 MG CAPSULE PO PRN ×2 (09:46→20:44)
[2020-04-17] MEDS ORDERED: morphine SULFATE 15 MG TAB.IR PO PRN (11:00)
[2020-04-17] MEDS: OMEPRAZOLE 20 MG CAPSULE.DR PO PRN ×2 (11:09→20:44)
[2020-04-17] MEDS: GABAPENTIN 300 MG CAPSULE PO SCH ×3 (11:13→20:44)
[2020-04-17 12:40] VITALS: BP 120/75
[2020-04-17 13:45] LABS: ANION GAP 13 mmol/L (5-15); CALCIUM 9.5 mg/dL (8.5-10.1); CHLORIDE 94 mmol/L (98-107); CREATININE 2.43 mg/dL (0.7-1.3)
[2020-04-17 15:31] VITALS: BP 125/83
[2020-04-17] MEDS: DIPHENOXYLATE/ATROPINE TABLET PO SCH ×2 (16:27→20:45)
[2020-04-17] MEDS ORDERED: MORPHINE SULFATE 4 MG/ML, 1ML ONE (16:39)
[2020-04-17] MEDS: CALCIUM CARBONATE 500 MG TAB.CHEW PO PRN (18:05)
[2020-04-17 19:48] VITALS: BP 114/80
[2020-04-17] MEDS: OLANZAPINE 10 MG TABLET PO SCH (20:49)
[2020-04-17] MEDS: POTASSIUM CHLORIDE 40 MEQ in SODIUM CHLORIDE 0.9% 1,000 ML IV SCH (23:41)
[2020-04-18 02:00] VITALS: BP 109/74
[2020-04-18 05:38] LABS: ALANINE AMINOTRANSFERASE 14 U/L (12-78); ALBUMIN 3.5 g/dL (3.4-5.0); ANION GAP 12 mmol/L (5-15); CALCIUM 9.7 mg/dL (8.5-10.1); CHLORIDE 96 mmol/L (98-107); CREATININE 2.94 mg/dL (0.7-1.3)
[2020-04-18 05:40] LABS: ALKALINE PHOSPHATASE 130 U/L (45-117); BILIRUBIN,TOTAL 0.4 mg/dL (0.2-1.0); TOTAL PROTEIN 8.4 g/dL (6.4-8.2)
[2020-04-18 05:42] LABS: BASOPHILS # (AUTO) 0.01 x10^3/uL (0-0.1); BASOPHILS % (AUTO) 0 % (0-1); EOSINOPHILS # (AUTO) 0.07 x10^3/uL (0-0.4); EOSINOPHILS % (AUTO) 1 % (1-7); LYMPHOCYTES # (AUTO) 0.47 x10^3/uL (1-3.4); LYMPHOCYTES % (AUTO) 7 % (22-44); MD NO; MEAN CORPUSCULAR HEMOGLOBIN 34.3 pg (27.5-34.5); MEAN CORPUSCULAR HGB CONC 33.7 g/dL (33.2-36.2); MEAN CORPUSCULAR VOLUME 101.8 fL (81-97); MEAN PLATELET VOLUME 6.5 fL (7.4-10.4); MONOCYTES # (AUTO) 0.85 x10^3/uL (0.2-0.8); MONOCYTES % (AUTO) 12 % (2-9); NEUTROPHILS # (AUTO) 5.66 x10^3/uL (1.8-6.8); NEUTROPHILS % (AUTO) 80 % (42-75); PLATELET COUNT 397 x10^3/uL (130-400); RED BLOOD COUNT 4.16 x10^6/uL (4.38-5.82); RED CELL DISTRIBUTION WIDTH 21.1 % (9.4-14.8)
[2020-04-18] MEDS: GABAPENTIN 300 MG CAPSULE PO SCH ×4 (05:50→21:22)
[2020-04-18] MEDS: POTASSIUM CHLORIDE 40 MEQ in SODIUM CHLORIDE 0.9% 1,000 ML IV SCH (05:53)
[2020-04-18 07:04] VITALS: BP 118/82
[2020-04-18] MEDS: DIPHENOXYLATE/ATROPINE TABLET PO SCH ×3 (09:20→21:22)
[2020-04-18] MEDS: COLESTIPOL 1 GM TABLET PO SCH (09:20)
[2020-04-18] MEDS: morphine SULFATE 10 MG/ML, 1ML IVPush PRN ×3 (09:29→21:22)
[2020-04-18] MEDS: ONDANSETRON 2MG/ML, 2ML IVPush PRN (09:39)
[2020-04-18] MEDS: LOPERAMIDE 2 MG CAPSULE PO PRN ×4 (09:54→21:23)
[2020-04-18] MEDS: POTASSIUM CHLORIDE 20 MEQ in SODIUM CHLORIDE 0.9% 1,000 ML IV SCH ×3 (09:59→22:39)
[2020-04-18 11:07] LABS: ANION GAP 12 mmol/L (5-15); CALCIUM 9.8 mg/dL (8.5-10.1); CHLORIDE 95 mmol/L (98-107); CREATININE 3.21 mg/dL (0.7-1.3)
[2020-04-18] MEDS ORDERED: PHARMACY MAY ADJ FOR RENAL FX MC PRN (12:00)
[2020-04-18] MEDS: CALCIUM CARBONATE 500 MG TAB.CHEW PO PRN (12:08)
[2020-04-18] MEDS: LACTOBACILLUS CHEW TABLET PO SCH (12:09)
[2020-04-18 13:19] VITALS: BP 111/71
[2020-04-18 19:44] VITALS: BP 122/77
[2020-04-18] MEDS: OLANZAPINE 10 MG TABLET PO SCH (21:22)
[2020-04-18 22:52] LABS: CHLORIDE,URINE RANDOM 23 mmol/L; POTASSIUM,URINE RANDOM 29 mmol/L; SODIUM,URINE RANDOM 6 mmol/L
[2020-04-18] MEDS: LOPERAMIDE 2 MG CAPSULE PO SCH (23:35)
[2020-04-18 23:36] LABS: OSMOLALITY,URINE 407 mOsm/kg (500-850)
[2020-04-19 02:00] VITALS: BP 117/72
[2020-04-19] MEDS: LOPERAMIDE 2 MG CAPSULE PO SCH ×4 (04:09→20:08)
[2020-04-19] MEDS: POTASSIUM CHLORIDE 20 MEQ in SODIUM CHLORIDE 0.9% 1,000 ML IV SCH ×2 (04:09→08:54)
[2020-04-19] MEDS: GABAPENTIN 300 MG CAPSULE PO SCH ×4 (04:13→20:08)
[2020-04-19] MEDS: morphine SULFATE 10 MG/ML, 1ML IVPush PRN ×5 (04:56→20:09)
[2020-04-19 06:37] LABS: BASOPHILS % (AUTO) 0 % (0-1); EOSINOPHILS # (AUTO) 0.12 x10^3/uL (0-0.4); EOSINOPHILS % (AUTO) 2 % (1-7); LYMPHOCYTES # (AUTO) 0.41 x10^3/uL (1-3.4); LYMPHOCYTES % (AUTO) 6 % (22-44); MD NO; MEAN CORPUSCULAR HEMOGLOBIN 33.6 pg (27.5-34.5); MEAN CORPUSCULAR HGB CONC 32.9 g/dL (33.2-36.2); MEAN CORPUSCULAR VOLUME 101.9 fL (81-97); MEAN PLATELET VOLUME 6.8 fL (7.4-10.4); MONOCYTES # (AUTO) 0.68 x10^3/uL (0.2-0.8); MONOCYTES % (AUTO) 10 % (2-9); NEUTROPHILS # (AUTO) 5.42 x10^3/uL (1.8-6.8); NEUTROPHILS % (AUTO) 82 % (42-75); PLATELET COUNT 350 x10^3/uL (130-400); RED BLOOD COUNT 3.76 x10^6/uL (4.38-5.82); RED CELL DISTRIBUTION WIDTH 21.4 % (9.4-14.8)
[2020-04-19 06:51] LABS: ALANINE AMINOTRANSFERASE 13 U/L (12-78); ALBUMIN 3.2 g/dL (3.4-5.0); ANION GAP 10 mmol/L (5-15); CALCIUM 9.1 mg/dL (8.5-10.1); CHLORIDE 103 mmol/L (98-107); CREATININE 1.82 mg/dL (0.7-1.3)
[2020-04-19 06:53] LABS: ALKALINE PHOSPHATASE 120 U/L (45-117); BILIRUBIN,TOTAL 0.4 mg/dL (0.2-1.0); TOTAL PROTEIN 7.6 g/dL (6.4-8.2)
[2020-04-19 07:30] VITALS: BP 111/71
[2020-04-19] MEDS: LACTOBACILLUS CHEW TABLET PO SCH (08:54)
[2020-04-19] MEDS: COLESTIPOL 1 GM TABLET PO SCH (08:54)
[2020-04-19] MEDS: DIPHENOXYLATE/ATROPINE TABLET PO SCH ×3 (08:54→21:53)
[2020-04-19] MEDS ORDERED: LACTATED RINGERS 1,000 ML IV SCH (11:00)
[2020-04-19] MEDS: ONDANSETRON 2MG/ML, 2ML IVPush PRN (11:20)
[2020-04-19 11:37] LABS: FIO2 ROOM AIR %
[2020-04-19 12:02] LABS: ANION GAP 10 mmol/L (5-15); CALCIUM 9.2 mg/dL (8.5-10.1); CHLORIDE 105 mmol/L (98-107); CREATININE 1.43 mg/dL (0.7-1.3)
[2020-04-19 14:34] VITALS: BP 110/82
[2020-04-19 15:01] LABS: ANION GAP 6 mmol/L (5-15); CALCIUM 9.6 mg/dL (8.5-10.1); CHLORIDE 104 mmol/L (98-107); CREATININE 1.52 mg/dL (0.7-1.3)
[2020-04-19] MEDS: OLANZAPINE 10 MG TABLET PO SCH (20:09)
[2020-04-19 20:38] VITALS: BP 110/68
[2020-04-20 00:39] VITALS: BP 114/66
[2020-04-20] MEDS: morphine SULFATE 10 MG/ML, 1ML IVPush PRN ×4 (00:43→20:11)
[2020-04-20] MEDS: LOPERAMIDE 2 MG CAPSULE PO SCH ×4 (01:00→17:33)
[2020-04-20] MEDS: GABAPENTIN 300 MG CAPSULE PO SCH ×4 (05:16→20:11)
[2020-04-20 06:17] LABS: MEAN CORPUSCULAR HEMOGLOBIN 34.1 pg (27.5-34.5); MEAN CORPUSCULAR HGB CONC 33.6 g/dL (33.2-36.2); MEAN CORPUSCULAR VOLUME 101.6 fL (81-97); MEAN PLATELET VOLUME 6.3 fL (7.4-10.4); PLATELET COUNT 341 x10^3/uL (130-400); RED BLOOD COUNT 3.78 x10^6/uL (4.38-5.82); RED CELL DISTRIBUTION WIDTH 20.7 % (9.4-14.8)
[2020-04-20 06:26] LABS: ANION GAP 12 mmol/L (5-15); CALCIUM 9.6 mg/dL (8.5-10.1); CHLORIDE 103 mmol/L (98-107); CREATININE 1.45 mg/dL (0.7-1.3)
[2020-04-20 06:38] LABS: MD YES
[2020-04-20 06:41] LABS: <PLATELET ESTIMATE> ADEQUATE; <PLT MORPHOLOGY> NORMAL PLT MORPH; ANISOCYTOSIS 1+; BAND#(MANUAL) 0.22 x10^3/uL; BANDS%(MANUAL) 4 % (0-7); EOS#(MANUAL) 0.11 x10^3/uL (0.0-0.4); EOS% (MANUAL) 2 % (1-7); LYMPH#(MANUAL) 0.78 x10^3/uL (1-3.4); LYMPHS% (MANUAL) 14 % (22-44); METAMYELOCYTES# (MANUAL) 0.11 x10^3/uL (0-0); METAMYELOCYTES% (MANUAL) 2 % (0-1); MONOS#(MANUAL) 0.39 x10^3/uL (0.3-2.7); MONOS% (MANUAL) 7 % (2-9); SEG#(MANUAL) 3.98 x10^3/uL (1.8-6.8); SEGS% (MANUAL) 71 % (42-75); TOXIC GRAN 1+
[2020-04-20 07:11] VITALS: BP 103/70
[2020-04-20] MEDS ORDERED: FENTANYL PF 100 MCG/2ML ONE (07:51)
[2020-04-20] MEDS ORDERED: MIDAZOLAM 1 MG/ML, 2ML ONE (07:51)
[2020-04-20] MEDS ORDERED: PROPOFOL 50 ML ONE (07:52)
[2020-04-20] MEDS ORDERED: POTASSIUM CHLORIDE 40 MEQ in SODIUM CHLORIDE 0.9% 500 ML IV ONE (08:30)
[2020-04-20] MEDS: COLESTIPOL 1 GM TABLET PO SCH ×2 (08:52→12:58)
[2020-04-20] MEDS: LACTOBACILLUS CHEW TABLET PO SCH (08:52)
[2020-04-20] MEDS: DIPHENOXYLATE/ATROPINE TABLET PO SCH ×3 (08:53→20:11)
[2020-04-20] MEDS: SODIUM BICARBONATE 8.4% 150 MEQ in DEXTROSE 5% 1,000 ML IV SCH ×2 (10:30→20:14)
[2020-04-20] MEDS ORDERED: LACTATED RINGERS 1,000 ML IV SCH (11:00)
[2020-04-20 16:39] VITALS: BP 97/55
[2020-04-20 19:04] VITALS: BP 99/63
[2020-04-20] MEDS: OLANZAPINE 10 MG TABLET PO SCH (20:11)
[2020-04-20] MEDS: CALCIUM CARBONATE 500 MG TAB.CHEW PO PRN (20:42)
[2020-04-21 00:29] VITALS: BP 97/61
[2020-04-21] MEDS: LOPERAMIDE 2 MG CAPSULE PO SCH ×4 (01:22→20:02)
[2020-04-21] MEDS: morphine SULFATE 10 MG/ML, 1ML IVPush PRN ×4 (01:22→20:03)
[2020-04-21] MEDS: SODIUM BICARBONATE 8.4% 150 MEQ in DEXTROSE 5% 1,000 ML IV SCH (05:40)
[2020-04-21] MEDS: GABAPENTIN 300 MG CAPSULE PO SCH ×4 (05:40→20:02)
[2020-04-21 06:05] LABS: CALCIUM 9.5 mg/dL (8.5-10.1); CREATININE 2.38 mg/dL (0.7-1.3)
[2020-04-21 06:12] LABS: ANION GAP 10 mmol/L (5-15); CHLORIDE 96 mmol/L (98-107)
[2020-04-21] MEDS ORDERED: POTASSIUM CHLORIDE 40 MEQ in SODIUM CHLORIDE 0.9% 500 ML IV ONE (06:30)
[2020-04-21 07:36] VITALS: BP 103/65
[2020-04-21] MEDS: LACTOBACILLUS CHEW TABLET PO SCH (08:33)
[2020-04-21] MEDS: DIPHENOXYLATE/ATROPINE TABLET PO SCH ×3 (08:34→20:02)
[2020-04-21] MEDS: POTASSIUM CHLORIDE 20 MEQ TAB.ER.PRT PO SCH ×3 (08:34→20:02)
[2020-04-21] MEDS: COLESTIPOL 1 GM TABLET PO SCH (08:34)
[2020-04-21] MEDS ORDERED: POTASSIUM CHLORIDE 20 MEQ TAB.ER.PRT PO SCH (09:00)
[2020-04-21] MEDS: ONDANSETRON 2MG/ML, 2ML IVPush PRN (09:30)
[2020-04-21 12:45] VITALS: BP 87/54
[2020-04-21] MEDS: POTASSIUM CHLORIDE 20 MEQ in LACTATED RINGERS 1,000 ML IV SCH ×2 (12:51→20:06)
[2020-04-21] MEDS: OLANZAPINE 10 MG TABLET PO SCH (20:02)
[2020-04-21 20:04] VITALS: BP 113/72
[2020-04-21] MEDS: CALCIUM CARBONATE 500 MG TAB.CHEW PO PRN (20:05)
[2020-04-22 01:13] VITALS: BP 105/63
[2020-04-22] MEDS: LOPERAMIDE 2 MG CAPSULE PO SCH ×4 (01:43→20:29)
[2020-04-22] MEDS: morphine SULFATE 10 MG/ML, 1ML IVPush PRN ×4 (01:44→17:32)
[2020-04-22] MEDS: CALCIUM CARBONATE 500 MG TAB.CHEW PO PRN ×3 (01:53→15:01)
[2020-04-22 05:04] LABS: ANION GAP 12 mmol/L (5-15); CALCIUM 9.7 mg/dL (8.5-10.1); CHLORIDE 94 mmol/L (98-107)
[2020-04-22 05:05] LABS: CREATININE 3.86 mg/dL (0.7-1.3)
[2020-04-22] MEDS: GABAPENTIN 300 MG CAPSULE PO SCH ×4 (05:29→20:29)
[2020-04-22] MEDS: POTASSIUM CHLORIDE 20 MEQ in LACTATED RINGERS 1,000 ML IV SCH ×4 (05:30→22:40)
[2020-04-22] MEDS: COLESTIPOL 1 GM TABLET PO SCH (07:37)
[2020-04-22] MEDS: DIPHENOXYLATE/ATROPINE TABLET PO SCH (07:38)
[2020-04-22] MEDS: LACTOBACILLUS CHEW TABLET PO SCH (07:38)
[2020-04-22 08:12] VITALS: BP 112/74
[2020-04-22] MEDS ORDERED: PHARMACY MAY ADJ FOR RENAL FX MC PRN ×2 (08:30)
[2020-04-22] MEDS: POTASSIUM CHLORIDE 20 MEQ TAB.ER.PRT PO SCH ×3 (08:44→20:28)
[2020-04-22] MEDS: ONDANSETRON 2MG/ML, 2ML IVPush PRN (10:33)
[2020-04-22 13:27] VITALS: BP 94/58
[2020-04-22 19:15] VITALS: BP 103/64
[2020-04-22] MEDS: OLANZAPINE 10 MG TABLET PO SCH (20:29)
[2020-04-23 01:04] VITALS: BP 95/62
[2020-04-23] MEDS: LOPERAMIDE 2 MG CAPSULE PO SCH ×4 (01:47→17:40)
[2020-04-23] MEDS: POTASSIUM CHLORIDE 20 MEQ TAB.ER.PRT PO SCH ×2 (01:47→07:53)
[2020-04-23] MEDS: morphine SULFATE 10 MG/ML, 1ML IVPush PRN (01:47)
[2020-04-23] MEDS: POTASSIUM CHLORIDE 20 MEQ in LACTATED RINGERS 1,000 ML IV SCH ×5 (03:30→23:01)
[2020-04-23] MEDS: GABAPENTIN 300 MG CAPSULE PO SCH ×4 (05:30→22:00)
[2020-04-23 06:42] LABS: MEAN CORPUSCULAR HEMOGLOBIN 33.1 pg (27.5-34.5); MEAN CORPUSCULAR HGB CONC 32.3 g/dL (33.2-36.2); MEAN CORPUSCULAR VOLUME 102.6 fL (81-97); MEAN PLATELET VOLUME 6.5 fL (7.4-10.4); PLATELET COUNT 287 x10^3/uL (130-400); RED BLOOD COUNT 3.35 x10^6/uL (4.38-5.82); RED CELL DISTRIBUTION WIDTH 20.7 % (9.4-14.8)
[2020-04-23 06:55] VITALS: BP 90/56
[2020-04-23 06:55] LABS: CHLORIDE 94 mmol/L (98-107)
[2020-04-23 07:04] LABS: ALBUMIN 3.2 g/dL (3.4-5.0); ANION GAP 11 mmol/L (5-15); CALCIUM 9.6 mg/dL (8.5-10.1); CREATININE 3.57 mg/dL (0.7-1.3)
[2020-04-23 07:06] LABS: MD YES
[2020-04-23 07:08] LABS: BAND#(MANUAL) 1.04 x10^3/uL; BANDS%(MANUAL) 9 % (0-7); EOS#(MANUAL) 0.23 x10^3/uL (0.0-0.4); EOS% (MANUAL) 2 % (1-7); MONOS#(MANUAL) 0.46 x10^3/uL (0.3-2.7); MONOS% (MANUAL) 4 % (2-9)
[2020-04-23 07:09] LABS: ANISOCYTOSIS 1+
[2020-04-23 07:10] LABS: <PLATELET ESTIMATE> ADEQUATE; LYMPH#(MANUAL) 0.46 x10^3/uL (1-3.4); LYMPHS% (MANUAL) 4 % (22-44); SEGS% (MANUAL) 81 % (42-75)
[2020-04-23 07:11] LABS: <PLT MORPHOLOGY> NORMAL PLT MORPH
[2020-04-23] MEDS: LACTOBACILLUS CHEW TABLET PO SCH ×3 (07:52→22:00)
[2020-04-23] MEDS: COLESTIPOL 1 GM TABLET PO SCH (07:52)
[2020-04-23 07:57] VITALS: BP 87/57
[2020-04-23] MEDS: ACETAMINOPHEN 325 MG TABLET PO PRN (08:51)
[2020-04-23] MEDS ORDERED: SODIUM CHLORIDE 0.9% 1,000ML IVBOLUS ONE ×3 (09:00→13:00)
[2020-04-23 09:25] LABS: FIO2 RA %
[2020-04-23 09:50] VITALS: BP 86/48
[2020-04-23] MEDS ORDERED: ACETAMINOPHEN 325 MG TABLET PO PRN (10:00)
[2020-04-23] MEDS ORDERED: MAGNESIUM SULFATE PMX 2GM/50ML 50 ML IV ONE (10:00)
[2020-04-23 10:13] LABS: MICROSCOPIC INDICATED
[2020-04-23 10:28] VITALS: BP 77/48
[2020-04-23] MEDS ORDERED: POTASSIUM CHLORIDE 20 MEQ in LACTATED RINGERS 1,000 ML IV SCH (10:30)
[2020-04-23 11:09] VITALS: BP 88/46
[2020-04-23] MEDS ORDERED: NOREPINEPHRINE 8 MG in SODIUM CHLORIDE 0.9% 242 ML IV PRN (12:00)
[2020-04-23] MEDS ORDERED: VANCOMYCIN PER PHARMACY MC PRN (12:30)
[2020-04-23] MEDS ORDERED: PHARMACOKINETIC MONITORING MC PRN (13:00)
[2020-04-23] MEDS ORDERED: PHARMACOKINETIC CONSULTATION MC ONE (13:00)
[2020-04-23] MEDS ORDERED: POTASSIUM CHLORIDE 40 MEQ in SODIUM CHLORIDE 0.9% 100 ML IV ONE (13:00)
[2020-04-23] MEDS: PIPERACILLIN/TAZO/PMX 2.25GM 50 ML IV SCH ×2 (13:30→21:59)
[2020-04-23 13:41] LABS: MICROSCOPIC INDICATED
[2020-04-23] MEDS ORDERED: VANCOMYCIN 2,500 MG in SODIUM CHLORIDE 0.9% 500 ML IV ONE (14:00)
[2020-04-23] MEDS ORDERED: SODIUM PHOSPHATE 20 MMOL in SODIUM CHLORIDE 0.9% 500 ML IV ONE (14:00)
[2020-04-23] MEDS: OCTREOTIDE 50 MCG/ML, 1ML (0.05MG/ML) SQ SCH ×2 (15:03→22:19)
[2020-04-23] MEDS ORDERED: POTASSIUM CHLORIDE 20 MEQ TAB.ER.PRT PO SCH (16:30)
[2020-04-23 18:52] LABS: ANION GAP 7 mmol/L (5-15); CALCIUM 8.2 mg/dL (8.5-10.1); CHLORIDE 104 mmol/L (98-107); CREATININE 1.96 mg/dL (0.7-1.3)
[2020-04-23] MEDS: CALCIUM CARBONATE 500 MG TAB.CHEW PO PRN (21:59)
[2020-04-23] MEDS: OLANZAPINE 10 MG TABLET PO SCH (21:59)
[2020-04-23] MEDS: ONDANSETRON 2MG/ML, 2ML IVPush PRN (22:21)
[2020-04-23] MEDS: morphine SULFATE 15 MG TAB.IR PO PRN (22:37)
[2020-04-24] MEDS: LOPERAMIDE 2 MG CAPSULE PO SCH ×4 (01:33→17:54)
[2020-04-24] MEDS: POTASSIUM CHLORIDE 20 MEQ in LACTATED RINGERS 1,000 ML IV SCH ×4 (03:42→17:53)
[2020-04-24 04:45] LABS: MEAN CORPUSCULAR HEMOGLOBIN 33.8 pg (27.5-34.5); MEAN CORPUSCULAR HGB CONC 33.1 g/dL (33.2-36.2); MEAN CORPUSCULAR VOLUME 102.1 fL (81-97); MEAN PLATELET VOLUME 6.1 fL (7.4-10.4); PLATELET COUNT 229 x10^3/uL (130-400); RED BLOOD COUNT 3.02 x10^6/uL (4.38-5.82); RED CELL DISTRIBUTION WIDTH 20.5 % (9.4-14.8)
[2020-04-24 04:52] LABS: ANION GAP 7 mmol/L (5-15); CHLORIDE 107 mmol/L (98-107)
[2020-04-24 04:58] LABS: % IRON SATURATION 16 % (20-55); CREATININE 1.22 mg/dL (0.7-1.3); IRON LEVEL 32 mcg/dL (65-175); TOTAL IRON BINDING CAPACITY 206 mcg/dL (250-450)
[2020-04-24 05:42] LABS: BASOPHILS # (AUTO) 0.03 x10^3/uL (0-0.1); BASOPHILS % (AUTO) 1 % (0-1); EOSINOPHILS # (AUTO) 0.09 x10^3/uL (0-0.4); EOSINOPHILS % (AUTO) 2 % (1-7); LYMPHOCYTES # (AUTO) 0.43 x10^3/uL (1-3.4); LYMPHOCYTES % (AUTO) 7 % (22-44); MD SCAN; MONOCYTES # (AUTO) 0.35 x10^3/uL (0.2-0.8); MONOCYTES % (AUTO) 6 % (2-9); NEUTROPHILS # (AUTO) 4.99 x10^3/uL (1.8-6.8); NEUTROPHILS % (AUTO) 85 % (42-75)
[2020-04-24] MEDS: PIPERACILLIN/TAZO/PMX 2.25GM 50 ML IV SCH ×3 (05:46→21:10)
[2020-04-24] MEDS ORDERED: POTASSIUM PHOSPHATE 44 MEQ in SODIUM CHLORIDE 0.9% 500 ML IV ONE (06:30)
[2020-04-24] MEDS: GABAPENTIN 300 MG CAPSULE PO SCH ×4 (06:40→21:11)
[2020-04-24] MEDS: LACTOBACILLUS CHEW TABLET PO SCH ×3 (08:40→21:10)
[2020-04-24] MEDS: CALCIUM CARBONATE 500 MG TAB.CHEW PO PRN (08:40)
[2020-04-24] MEDS: COLESTIPOL 1 GM TABLET PO SCH (08:40)
[2020-04-24] MEDS: OCTREOTIDE 50 MCG/ML, 1ML (0.05MG/ML) SQ SCH ×3 (08:41→21:10)
[2020-04-24] MEDS: morphine SULFATE 15 MG TAB.IR PO PRN (09:10)
[2020-04-24] MEDS: VANCOMYCIN 2,000 MG in SODIUM CHLORIDE 0.9% 500 ML IV SCH (13:44)
[2020-04-24] MEDS: MIDODRINE 5 MG TABLET PO SCH ×3 (14:17→21:11)
[2020-04-24] MEDS: OLANZAPINE 10 MG TABLET PO SCH (21:10)
[2020-04-25] MEDS: LOPERAMIDE 2 MG CAPSULE PO SCH ×4 (01:40→19:24)
[2020-04-25] MEDS: POTASSIUM CHLORIDE 20 MEQ in LACTATED RINGERS 1,000 ML IV SCH ×2 (01:40→05:55)
[2020-04-25] MEDS: VANCOMYCIN 2,000 MG in SODIUM CHLORIDE 0.9% 500 ML IV SCH (01:44)
[2020-04-25 04:23] LABS: BASOPHILS # (AUTO) 0.04 x10^3/uL (0-0.1); BASOPHILS % (AUTO) 1 % (0-1); EOSINOPHILS # (AUTO) 0.09 x10^3/uL (0-0.4); EOSINOPHILS % (AUTO) 2 % (1-7); LYMPHOCYTES # (AUTO) 0.77 x10^3/uL (1-3.4); LYMPHOCYTES % (AUTO) 13 % (22-44); MD NO; MEAN PLATELET VOLUME 5.9 fL (7.4-10.4); MONOCYTES # (AUTO) 0.43 x10^3/uL (0.2-0.8); MONOCYTES % (AUTO) 7 % (2-9); NEUTROPHILS # (AUTO) 4.81 x10^3/uL (1.8-6.8); NEUTROPHILS % (AUTO) 78 % (42-75); PLATELET COUNT 210 x10^3/uL (130-400); RED BLOOD COUNT 2.79 x10^6/uL (4.38-5.82)
[2020-04-25 04:34] LABS: ALANINE AMINOTRANSFERASE 10 U/L (12-78); ANION GAP 6 mmol/L (5-15); CALCIUM 7.6 mg/dL (8.5-10.1); CHLORIDE 113 mmol/L (98-107); CREATININE 0.71 mg/dL (0.7-1.3)
[2020-04-25 04:39] LABS: ALKALINE PHOSPHATASE 79 U/L (45-117); BILIRUBIN,TOTAL 0.2 mg/dL (0.2-1.0)
[2020-04-25] MEDS: PIPERACILLIN/TAZO/PMX 2.25GM 50 ML IV SCH (04:43)
[2020-04-25] MEDS: GABAPENTIN 300 MG CAPSULE PO SCH ×4 (05:56→21:53)
[2020-04-25] MEDS ORDERED: MAGNESIUM SULFATE PMX 4GM/100M 100 ML IV ONE (07:00)
[2020-04-25] MEDS ORDERED: POTASSIUM PHOSPHATE 44 MEQ in SODIUM CHLORIDE 0.9% 500 ML IV ONE (07:00)
[2020-04-25 08:00] VITALS: BP 100/70
[2020-04-25] MEDS: CALCIUM CARBONATE 500 MG TAB.CHEW PO PRN ×2 (08:14→14:50)
[2020-04-25] MEDS: MIDODRINE 5 MG TABLET PO SCH ×3 (08:14→21:54)
[2020-04-25] MEDS: LACTOBACILLUS CHEW TABLET PO SCH ×3 (08:14→21:54)
[2020-04-25] MEDS: COLESTIPOL 1 GM TABLET PO SCH (08:14)
[2020-04-25] MEDS: OCTREOTIDE 50 MCG/ML, 1ML (0.05MG/ML) SQ SCH ×2 (08:15→17:34)
[2020-04-25] MEDS ORDERED: ERGOCALCIFEROL 50,000 UNIT CAPSULE PO SCH (09:30)
[2020-04-25] MEDS ORDERED: IRON SUCROSE COMPLEX 100MG/5ML ONE (09:41)
[2020-04-25] MEDS: IRON SUCROSE COMPLEX 100MG/5ML IV SCH (09:44)
[2020-04-25 10:19] VITALS: BP 111/71
[2020-04-25] MEDS: POTASSIUM CHLORIDE 20 MEQ in SODIUM CHLORIDE 0.45% 1,000 ML IV SCH ×2 (11:00→18:23)
[2020-04-25 12:33] VITALS: BP 111/76
[2020-04-25] MEDS: morphine SULFATE 15 MG TAB.IR PO PRN ×2 (15:51→21:55)
[2020-04-25 19:18] VITALS: BP 110/71
[2020-04-25] MEDS: OCTREOTIDE 100MCG/ML, 1ML (0.1MG/ML) SQ SCH (19:25)
[2020-04-25] MEDS: OMEPRAZOLE 20 MG CAPSULE.DR PO PRN (19:30)
[2020-04-25] MEDS: OLANZAPINE 10 MG TABLET PO SCH (21:54)
[2020-04-26] MEDS: POTASSIUM CHLORIDE 20 MEQ in SODIUM CHLORIDE 0.45% 1,000 ML IV SCH ×4 (00:08→22:17)
[2020-04-26] MEDS: LOPERAMIDE 2 MG CAPSULE PO SCH ×2 (01:24→16:31)
[2020-04-26 01:27] VITALS: BP 111/74
[2020-04-26] MEDS: morphine SULFATE 15 MG TAB.IR PO PRN ×3 (04:42→18:16)
[2020-04-26] MEDS: GABAPENTIN 300 MG CAPSULE PO SCH ×4 (04:42→21:41)
[2020-04-26 05:34] LABS: ALBUMIN 2.1 g/dL (3.4-5.0); ANION GAP 5 mmol/L (5-15); CALCIUM 7.5 mg/dL (8.5-10.1); CHLORIDE 112 mmol/L (98-107)
[2020-04-26 05:37] LABS: ALANINE AMINOTRANSFERASE 11 U/L (12-78); ALKALINE PHOSPHATASE 90 U/L (45-117); BILIRUBIN,TOTAL 0.2 mg/dL (0.2-1.0); CREATININE 0.59 mg/dL (0.7-1.3); TOTAL PROTEIN 5.3 g/dL (6.4-8.2)
[2020-04-26 05:44] LABS: BASOPHILS # (AUTO) 0.01 x10^3/uL (0-0.1); BASOPHILS % (AUTO) 0 % (0-1); EOSINOPHILS # (AUTO) 0.14 x10^3/uL (0-0.4); EOSINOPHILS % (AUTO) 2 % (1-7); LYMPHOCYTES # (AUTO) 0.73 x10^3/uL (1-3.4); LYMPHOCYTES % (AUTO) 11 % (22-44); MD NO; MEAN CORPUSCULAR HEMOGLOBIN 33.4 pg (27.5-34.5); MEAN CORPUSCULAR HGB CONC 32.3 g/dL (33.2-36.2); MEAN CORPUSCULAR VOLUME 103.2 fL (81-97); MEAN PLATELET VOLUME 6.5 fL (7.4-10.4); MONOCYTES # (AUTO) 0.59 x10^3/uL (0.2-0.8); MONOCYTES % (AUTO) 9 % (2-9); NEUTROPHILS # (AUTO) 4.97 x10^3/uL (1.8-6.8); NEUTROPHILS % (AUTO) 77 % (42-75); PLATELET COUNT 222 x10^3/uL (130-400); RED BLOOD COUNT 2.85 x10^6/uL (4.38-5.82); RED CELL DISTRIBUTION WIDTH 20.5 % (9.4-14.8)
[2020-04-26] MEDS: LACTOBACILLUS CHEW TABLET PO SCH ×3 (07:46→21:41)
[2020-04-26] MEDS: MIDODRINE 5 MG TABLET PO SCH ×3 (07:46→21:41)
[2020-04-26] MEDS: OCTREOTIDE 100MCG/ML, 1ML (0.1MG/ML) SQ SCH ×3 (07:46→21:55)
[2020-04-26] MEDS: COLESTIPOL 1 GM TABLET PO SCH (07:46)
[2020-04-26] MEDS: IRON SUCROSE COMPLEX 100MG/5ML IV SCH (07:47)
[2020-04-26] MEDS ORDERED: MAGNESIUM SULFATE PMX 4GM/100M 100 ML IV ONE (08:00)
[2020-04-26 09:05] VITALS: BP 98/66
[2020-04-26 14:10] VITALS: BP 94/61
[2020-04-26] MEDS: CALCIUM CARBONATE 500 MG TAB.CHEW PO PRN (21:41)
[2020-04-26] MEDS: OMEPRAZOLE 20 MG CAPSULE.DR PO PRN (21:41)
[2020-04-26] MEDS: OLANZAPINE 10 MG TABLET PO SCH (21:42)
[2020-04-26 21:44] VITALS: BP 110/71
[2020-04-27] MEDS: morphine SULFATE 15 MG TAB.IR PO PRN ×4 (00:05→18:46)
[2020-04-27] MEDS: LOPERAMIDE 2 MG CAPSULE PO SCH ×3 (00:05→20:42)
[2020-04-27] MEDS: CALCIUM CARBONATE 500 MG TAB.CHEW PO PRN (02:08)
[2020-04-27 02:12] VITALS: BP 115/79
[2020-04-27] MEDS: GABAPENTIN 300 MG CAPSULE PO SCH ×4 (05:57→20:41)
[2020-04-27] MEDS: POTASSIUM CHLORIDE 20 MEQ in SODIUM CHLORIDE 0.45% 1,000 ML IV SCH ×3 (06:43→21:57)
[2020-04-27 06:48] LABS: BASOPHILS # (AUTO) 0.01 x10^3/uL (0-0.1); BASOPHILS % (AUTO) 0 % (0-1); EOSINOPHILS % (AUTO) 3 % (1-7); LYMPHOCYTES % (AUTO) 8 % (22-44); MD NO; MEAN CORPUSCULAR HEMOGLOBIN 33.5 pg (27.5-34.5); MEAN CORPUSCULAR HGB CONC 32.1 g/dL (33.2-36.2); MEAN CORPUSCULAR VOLUME 104.1 fL (81-97); MEAN PLATELET VOLUME 6.3 fL (7.4-10.4); MONOCYTES # (AUTO) 0.46 x10^3/uL (0.2-0.8); MONOCYTES % (AUTO) 5 % (2-9); NEUTROPHILS # (AUTO) 7.23 x10^3/uL (1.8-6.8); NEUTROPHILS % (AUTO) 83 % (42-75); PLATELET COUNT 227 x10^3/uL (130-400); RED BLOOD COUNT 3.06 x10^6/uL (4.38-5.82); RED CELL DISTRIBUTION WIDTH 20.4 % (9.4-14.8)
[2020-04-27 06:54] LABS: ALANINE AMINOTRANSFERASE 15 U/L (12-78); ALBUMIN 2.2 g/dL (3.4-5.0); ANION GAP 5 mmol/L (5-15); CHLORIDE 112 mmol/L (98-107); CREATININE 0.66 mg/dL (0.7-1.3)
[2020-04-27 06:56] LABS: ALKALINE PHOSPHATASE 110 U/L (45-117); BILIRUBIN,TOTAL 0.3 mg/dL (0.2-1.0); TOTAL PROTEIN 5.5 g/dL (6.4-8.2)
[2020-04-27] MEDS: IRON SUCROSE COMPLEX 100MG/5ML IV SCH (08:52)
[2020-04-27] MEDS: OCTREOTIDE 100MCG/ML, 1ML (0.1MG/ML) SQ SCH ×3 (08:53→20:46)
[2020-04-27] MEDS: LACTOBACILLUS CHEW TABLET PO SCH ×3 (08:53→20:42)
[2020-04-27] MEDS: COLESTIPOL 1 GM TABLET PO SCH (08:53)
[2020-04-27] MEDS: MIDODRINE 5 MG TABLET PO SCH ×3 (08:54→20:41)
[2020-04-27 09:10] VITALS: BP 113/78
[2020-04-27] MEDS ORDERED: POTASSIUM PHOSPHATE 44 MEQ in SODIUM CHLORIDE 0.9% 500 ML IV ONE (12:00)
[2020-04-27] MEDS ORDERED: LOPERAMIDE 2 MG CAPSULE PO SCH (12:00)
[2020-04-27 15:03] VITALS: BP 111/70
[2020-04-27 19:39] VITALS: BP 109/64
[2020-04-27] MEDS: OLANZAPINE 10 MG TABLET PO SCH (20:42)
[2020-04-27] MEDS: ONDANSETRON 2MG/ML, 2ML IVPush PRN (22:42)
[2020-04-28 02:16] VITALS: BP 121/81
[2020-04-28] MEDS: morphine SULFATE 15 MG TAB.IR PO PRN ×2 (02:19→08:53)
[2020-04-28] MEDS: LOPERAMIDE 2 MG CAPSULE PO SCH (03:13)
[2020-04-28] MEDS: POTASSIUM CHLORIDE 20 MEQ in SODIUM CHLORIDE 0.45% 1,000 ML IV SCH (04:27)
[2020-04-28 08:47] VITALS: BP 115/78
[2020-04-28] MEDS: LACTOBACILLUS CHEW TABLET PO SCH (08:52)
[2020-04-28] MEDS: GABAPENTIN 300 MG CAPSULE PO SCH ×2 (08:52→11:14)
[2020-04-28] MEDS: OCTREOTIDE 100MCG/ML, 1ML (0.1MG/ML) SQ SCH (08:52)
[2020-04-28] MEDS: COLESTIPOL 1 GM TABLET PO SCH (08:52)
[2020-04-28] MEDS: IRON SUCROSE COMPLEX 100MG/5ML IV SCH (08:53)
[2020-04-28] MEDS: MIDODRINE 5 MG TABLET PO SCH (08:54)
[2020-04-28] MEDS: ONDANSETRON 2MG/ML, 2ML IVPush PRN (09:15)
[2020-04-28] MEDS ORDERED: POTASSIUM CHLORIDE 20 MEQ in SODIUM CHLORIDE 0.45% 1,000 ML IV SCH (09:30)
[2020-04-28] MEDS ORDERED: LOPERAMIDE 2 MG CAPSULE PO SCH (10:00)
[2020-04-28] MEDS ORDERED: GABA300C PO (10:36)
[2020-04-28] MEDS ORDERED: MIDO5TAB9 PO (10:36)
[2020-04-28] MEDS ORDERED: FERR-51 PO (10:36)
[2020-04-28] MEDS ORDERED: ERGO500017 PO (10:36)
== END 2020-04-28 13:37 | disposition home or self-care (01) | DRG 720 ==
LOC: ED 20:40 → 4EST 21:43 → CCU 04-23 11:36 → 4WST 04-25 10:03 → 3WST 04-25 16:16
PROVIDERS: ADMIT Internal Medicine; ATTEND Internal Medicine
DX: A41.9 Sepsis, unspecified organism (principal); C49.9 Malignant neoplasm of connective and soft tissue, unspecified; C78.6 Secondary malignant neoplasm of retroperitoneum and peritoneum; D50.9 Iron deficiency anemia, unspecified; D53.9 Nutritional anemia, unspecified; E83.39 Other disorders of phosphorus metabolism; E83.42 Hypomagnesemia; E83.51 Hypocalcemia; E86.0 Dehydration; E86.1 Hypovolemia; E87.1 Hypo-osmolality and hyponatremia; E87.2 Acidosis; E87.6 Hypokalemia; I10 Essential (primary) hypertension; K21.9 Gastro-esophageal reflux disease without esophagitis; R18.8 Other ascites; R65.21 Severe sepsis with septic shock; T45.1X5A Adverse effect of antineoplastic and immunosuppressive drugs, initial encounter; J96.00 Acute respiratory failure, unspecified whether with hypoxia or hypercapnia; L40.9 Psoriasis, unspecified; R33.9 Retention of urine, unspecified; N17.0 Acute kidney failure with tubular necrosis; Z80.0 Family history of malignant neoplasm of digestive organs; Z85.038 Personal history of other malignant neoplasm of large intestine; Z03.818 Encounter for observation for suspected exposure to other biological agents ruled out; Z88.5 Allergy status to narcotic agent
CPT/HCPCS: 36415; 36600; 71045; 74176; 76770; 80048; 80053; 80069; 81001; 82306; 82330; 82436; 82533; 82570; 82607; 82728; 82803; 83036; 83540; 83550; 83605; 83690; 83735; 83880; 83930; 83935; 83970; 84100; 84133; 84295; 84300; 84439; 84443; 84550; 85025; 87040; 87046; 87081; 87324; 87427; 87635; 89055; 93005; 93306; 96374; 96375; 99285; G0378; J1756; J2250; J2354; J2405; J2543; J2704; J3010; J3370; J3480; J7070; J1200; J2270; J2765; J3475; J7030; J7040; J7050; J7120

== ENCOUNTER 2020-05-31 11:07 | Inpatient (IN) | payer MEDICAID ==
[~2020-05-31] VITALS: Ht 188 cm; Wt 112.5 kg
[~2020-05-31 11:07] MED LIST changes: +ERGO500017 PO; +FERR-51 PO; +GABA300C PO; +MIDO5TAB9 PO
--- NOTE | 2020-05-31 11:58 | NUR ---
Pt placed in position of comfort, fluids infusing, family at bedside.
[2020-05-31] MEDS ORDERED: SODIUM CHLORIDE FLUSH 10ML SYR IVF ONE (12:00)
[2020-05-31] MEDS ORDERED: SODIUM CHLORIDE 0.9% 1,000ML IVBOLUS ONE (12:00)
[2020-05-31] MEDS ORDERED: METO5TAB2 PO (12:05)
--- NOTE | 2020-05-31 12:08 | NUR ---
Med rec complaete, urinal at bedside, waiting for UA.
[2020-05-31] MEDS ORDERED: MORPHINE SULFATE 4 MG/ML, 1ML ONE (12:16)
[2020-05-31 12:17] LABS: ALANINE AMINOTRANSFERASE 41 U/L (12-78); ALBUMIN 1.8 g/dL (3.4-5.0); ANION GAP 5 mmol/L (5-15); CALCIUM 8.3 mg/dL (8.5-10.1); CHLORIDE 96 mmol/L (98-107)
[2020-05-31] MEDS: MORPHINE SULFATE 4 MG/ML, 1ML IVPush PRN (12:18)
--- NOTE | 2020-05-31 12:18 | NUR ---
Pt medicated for pain
[2020-05-31 12:20] LABS: ALKALINE PHOSPHATASE 392 U/L (45-117); BILIRUBIN,TOTAL 0.4 mg/dL (0.2-1.0); CREATININE 0.92 mg/dL (0.7-1.3); TOTAL PROTEIN 6.1 g/dL (6.4-8.2)
[2020-05-31 12:27] LABS: BASOPHILS % (AUTO) 0 % (0-1); EOSINOPHILS # (AUTO) 0.01 x10^3/uL (0-0.4); EOSINOPHILS % (AUTO) 0 % (1-7); LYMPHOCYTES # (AUTO) 0.39 x10^3/uL (1-3.4); LYMPHOCYTES % (AUTO) 4 % (22-44); MD NO; MEAN CORPUSCULAR HEMOGLOBIN 32.1 pg (27.5-34.5); MEAN CORPUSCULAR HGB CONC 32.3 g/dL (33.2-36.2); MEAN CORPUSCULAR VOLUME 99.4 fL (81-97); MEAN PLATELET VOLUME 7.6 fL (7.4-10.4); MONOCYTES # (AUTO) 0.84 x10^3/uL (0.2-0.8); MONOCYTES % (AUTO) 9 % (2-9); NEUTROPHILS # (AUTO) 8.07 x10^3/uL (1.8-6.8); NEUTROPHILS % (AUTO) 87 % (42-75); PLATELET COUNT 371 x10^3/uL (130-400); RED BLOOD COUNT 3.14 x10^6/uL (4.38-5.82); RED CELL DISTRIBUTION WIDTH 19.3 % (9.4-14.8)
--- NOTE | 2020-05-31 12:46 | NUR ---
Pt unable to provide UA, provider aware. No need to straight cath at this time. Pt sleeping, appears comfortable.
[2020-05-31] MEDS ORDERED: SODIUM CHLORIDE FLUSH 10ML SYR IVF PRN (13:00)
--- NOTE | 2020-05-31 13:24 | NUR ---
Report provided to Gracy, all questions answered.
[2020-05-31] MEDS ORDERED: OMEPRAZOLE 20 MG CAPSULE.DR PO PRN (14:00)
[2020-05-31] MEDS ORDERED: ENALAPRILAT 1.25 MG/ML, 2ML IVPush PRN (14:00)
[2020-05-31] MEDS ORDERED: ONDANSETRON ODT 4 MG PO PRN (14:00)
[2020-05-31] MEDS ORDERED: ONDANSETRON 2MG/ML, 2ML IVPush PRN (14:00)
[2020-05-31] MEDS ORDERED: ACETAMINOPHEN 325 MG TABLET PO PRN (14:00)
[2020-05-31] MEDS ORDERED: DIPHENHYDRAMINE 25 MG CAPSULE PO PRN (14:00)
[2020-05-31] MEDS ORDERED: morphine SULFATE 15 MG TAB.IR PO PRN (14:00)
[2020-05-31] MEDS ORDERED: PROMETHAZINE 25 MG/ML, 1ML IM PRN (14:00)
[2020-05-31] MEDS ORDERED: METOCLOPRAMIDE 5 MG/ML, 2ML IVPush PRN (14:00)
[2020-05-31 14:18] VITALS: BP 138/85
[2020-05-31] MEDS: LACTATED RINGERS 1,000 ML IV SCH ×2 (14:46→21:39)
[2020-05-31] MEDS: MIDODRINE 5 MG TABLET PO SCH ×2 (14:46→21:40)
[2020-05-31] MEDS: FERROUS SULFATE 325 MG TABLET PO SCH (16:13)
[2020-05-31] MEDS: ENOXAPARIN 40 MG/0.4 ML SQ SCH (16:13)
[2020-05-31] MEDS: GABAPENTIN 300 MG CAPSULE PO SCH ×2 (16:13→21:40)
[2020-05-31 18:45] VITALS: BP 100/49
[2020-05-31] MEDS: morphine SULFATE 10 MG/ML, 1ML IVPush PRN ×2 (20:04→23:20)
[2020-05-31] MEDS: OLANZAPINE 10 MG TABLET PO SCH (21:40)
[2020-05-31 23:56] LABS: MICROSCOPIC INDICATED
[2020-06-01 01:56] VITALS: BP 116/65
[2020-06-01] MEDS: morphine SULFATE 10 MG/ML, 1ML IVPush PRN ×5 (02:01→21:47)
[2020-06-01] MEDS: LACTATED RINGERS 1,000 ML IV SCH (04:32)
[2020-06-01 04:54] LABS: BASOPHILS # (AUTO) 0.02 x10^3/uL (0-0.1); BASOPHILS % (AUTO) 0 % (0-1); EOSINOPHILS # (AUTO) 0.01 x10^3/uL (0-0.4); EOSINOPHILS % (AUTO) 0 % (1-7); LYMPHOCYTES # (AUTO) 0.34 x10^3/uL (1-3.4); LYMPHOCYTES % (AUTO) 5 % (22-44); MD NO; MEAN CORPUSCULAR HEMOGLOBIN 31.9 pg (27.5-34.5); MEAN CORPUSCULAR HGB CONC 31.9 g/dL (33.2-36.2); MEAN PLATELET VOLUME 7.3 fL (7.4-10.4); MONOCYTES # (AUTO) 0.55 x10^3/uL (0.2-0.8); MONOCYTES % (AUTO) 8 % (2-9); NEUTROPHILS # (AUTO) 5.99 x10^3/uL (1.8-6.8); NEUTROPHILS % (AUTO) 87 % (42-75); PLATELET COUNT 385 x10^3/uL (130-400); RED BLOOD COUNT 2.91 x10^6/uL (4.38-5.82)
[2020-06-01 04:58] LABS: ANION GAP 7 mmol/L (5-15); CALCIUM 7.5 mg/dL (8.5-10.1); CHLORIDE 95 mmol/L (98-107); CREATININE 0.59 mg/dL (0.7-1.3)
[2020-06-01] MEDS: GABAPENTIN 300 MG CAPSULE PO SCH ×4 (05:58→21:35)
[2020-06-01 08:21] VITALS: BP 116/63
[2020-06-01] MEDS: MIDODRINE 5 MG TABLET PO SCH ×3 (08:27→21:36)
[2020-06-01] MEDS: SODIUM CHLORIDE 0.9% 1,000 ML IV SCH (08:36)
[2020-06-01] MEDS ORDERED: OMNIPAQUE 350 MG/ML, 75ML BOTTLE ONE (12:29)
[2020-06-01 13:33] VITALS: BP 124/63
[2020-06-01 15:20] VITALS: BP 119/71
[2020-06-01] MEDS: ENOXAPARIN 40 MG/0.4 ML SQ SCH (16:55)
[2020-06-01 19:19] VITALS: BP 113/71
[2020-06-01] MEDS ORDERED: SODIUM CHLORIDE 0.9% 1,000ML IVBOLUS ONE ×2 (21:30→22:00)
[2020-06-01] MEDS: OLANZAPINE 10 MG TABLET PO SCH (21:35)
[2020-06-02 00:20] VITALS: BP 129/79
[2020-06-02] MEDS: SODIUM CHLORIDE 0.9% 1,000 ML IV SCH ×2 (00:31→14:09)
[2020-06-02] MEDS: morphine SULFATE 10 MG/ML, 1ML IVPush PRN ×3 (01:32→20:31)
[2020-06-02 02:23] LABS: TROPONIN I < 0.015 ng/mL (0.000-0.045)
[2020-06-02] MEDS: GABAPENTIN 300 MG CAPSULE PO SCH ×4 (05:21→20:30)
[2020-06-02 07:14] VITALS: BP 106/57
[2020-06-02] MEDS ORDERED: SODIUM CHLORIDE 0.9% 1,000 ML IV SCH (08:30)
[2020-06-02] MEDS: MIDODRINE 5 MG TABLET PO SCH ×3 (09:21→20:30)
[2020-06-02] MEDS: MORPHINE SULFATE 4 MG/ML, 1ML IVPush PRN ×2 (09:21→14:10)
[2020-06-02 09:32] LABS: BASOPHILS % (AUTO) 0 % (0-1); EOSINOPHILS # (AUTO) 0.03 x10^3/uL (0-0.4); EOSINOPHILS % (AUTO) 1 % (1-7); LYMPHOCYTES # (AUTO) 0.31 x10^3/uL (1-3.4); LYMPHOCYTES % (AUTO) 6 % (22-44); MD NO; MEAN CORPUSCULAR HEMOGLOBIN 32.1 pg (27.5-34.5); MEAN CORPUSCULAR HGB CONC 31.9 g/dL (33.2-36.2); MEAN CORPUSCULAR VOLUME 100.5 fL (81-97); MEAN PLATELET VOLUME 6.9 fL (7.4-10.4); MONOCYTES # (AUTO) 0.52 x10^3/uL (0.2-0.8); MONOCYTES % (AUTO) 9 % (2-9); NEUTROPHILS # (AUTO) 4.63 x10^3/uL (1.8-6.8); NEUTROPHILS % (AUTO) 84 % (42-75); PLATELET COUNT 370 x10^3/uL (130-400); RED BLOOD COUNT 2.86 x10^6/uL (4.38-5.82); RED CELL DISTRIBUTION WIDTH 19.1 % (9.4-14.8)
[2020-06-02 09:35] LABS: INTERNATIONAL NORMALIZED RATIO 1.04 (0.93-1.1); PROTHROMBIN TIME 10.7 Seconds (9.6-11.5)
[2020-06-02 09:41] LABS: ANION GAP 7 mmol/L (5-15); CALCIUM 7.8 mg/dL (8.5-10.1); CHLORIDE 101 mmol/L (98-107)
[2020-06-02] MEDS ORDERED: SODIUM CHLORIDE 0.9% 500 ML IV SCH (12:00)
[2020-06-02 12:55] VITALS: BP 93/48
[2020-06-02] MEDS: ENOXAPARIN 40 MG/0.4 ML SQ SCH (17:12)
[2020-06-02] MEDS: FERROUS SULFATE 325 MG TABLET PO SCH (17:12)
[2020-06-02] MEDS: ALBUMIN HUMAN 25% 100 ML IV SCH (17:13)
[2020-06-02] MEDS: OLANZAPINE 10 MG TABLET PO SCH (20:30)
[2020-06-02 20:36] VITALS: BP 111/58
[2020-06-02] MEDS: DIPHENHYDRAMINE 50 MG/ML, 1ML IVPush PRN (22:05)
[2020-06-03] MEDS: morphine SULFATE 10 MG/ML, 1ML IVPush PRN ×8 (00:14→22:46)
[2020-06-03] MEDS: LORazepam 0.5MG TABLET PO PRN ×3 (00:20→11:14)
[2020-06-03 01:13] VITALS: BP 113/65
[2020-06-03] MEDS: ALBUMIN HUMAN 25% 100 ML IV SCH ×3 (01:58→16:24)
[2020-06-03 04:31] LABS: BASOPHILS # (AUTO) 0.05 x10^3/uL (0-0.1); BASOPHILS % (AUTO) 1 % (0-1); EOSINOPHILS # (AUTO) 0.13 x10^3/uL (0-0.4); EOSINOPHILS % (AUTO) 2 % (1-7); LYMPHOCYTES # (AUTO) 0.52 x10^3/uL (1-3.4); LYMPHOCYTES % (AUTO) 8 % (22-44); MD NO; MEAN CORPUSCULAR HEMOGLOBIN 32.4 pg (27.5-34.5); MEAN CORPUSCULAR HGB CONC 32.6 g/dL (33.2-36.2); MEAN CORPUSCULAR VOLUME 99.5 fL (81-97); MEAN PLATELET VOLUME 7.5 fL (7.4-10.4); MONOCYTES # (AUTO) 0.53 x10^3/uL (0.2-0.8); MONOCYTES % (AUTO) 8 % (2-9); NEUTROPHILS # (AUTO) 5.31 x10^3/uL (1.8-6.8); NEUTROPHILS % (AUTO) 81 % (42-75); PLATELET COUNT 363 x10^3/uL (130-400); RED BLOOD COUNT 2.77 x10^6/uL (4.38-5.82); RED CELL DISTRIBUTION WIDTH 18.7 % (9.4-14.8)
[2020-06-03 04:35] LABS: ANION GAP 8 mmol/L (5-15); CALCIUM 8.1 mg/dL (8.5-10.1); CHLORIDE 100 mmol/L (98-107); CREATININE 0.44 mg/dL (0.7-1.3)
[2020-06-03] MEDS: GABAPENTIN 300 MG CAPSULE PO SCH ×4 (06:13→20:52)
[2020-06-03 07:54] VITALS: BP 122/65
[2020-06-03] MEDS: MIDODRINE 5 MG TABLET PO SCH ×3 (10:47→20:51)
[2020-06-03 13:43] VITALS: BP 109/58
[2020-06-03] MEDS ORDERED: LIDOCAINE 1%, 10ML ONE (14:27)
[2020-06-03] MEDS: ENOXAPARIN 40 MG/0.4 ML SQ SCH (16:34)
[2020-06-03 20:12] VITALS: BP 112/62
[2020-06-03] MEDS: DIPHENHYDRAMINE 50 MG/ML, 1ML IVPush PRN (20:48)
[2020-06-03] MEDS: OLANZAPINE 10 MG TABLET PO SCH (20:51)
[2020-06-04] MEDS: ALBUMIN HUMAN 25% 100 ML IV SCH ×3 (00:37→17:17)
[2020-06-04 01:08] VITALS: BP 103/53
[2020-06-04 02:54] VITALS: BP 105/57
[2020-06-04] MEDS: morphine SULFATE 10 MG/ML, 1ML IVPush PRN ×7 (03:44→22:29)
[2020-06-04] MEDS: GABAPENTIN 300 MG CAPSULE PO SCH ×4 (05:42→20:34)
[2020-06-04 06:12] LABS: MEAN CORPUSCULAR HEMOGLOBIN 32.5 pg (27.5-34.5); MEAN CORPUSCULAR HGB CONC 32.9 g/dL (33.2-36.2); MEAN CORPUSCULAR VOLUME 98.7 fL (81-97); MEAN PLATELET VOLUME 7.2 fL (7.4-10.4); PLATELET COUNT 305 x10^3/uL (130-400); RED BLOOD COUNT 2.65 x10^6/uL (4.38-5.82); RED CELL DISTRIBUTION WIDTH 19.1 % (9.4-14.8)
[2020-06-04 06:14] LABS: ANION GAP 7 mmol/L (5-15); CALCIUM 8.7 mg/dL (8.5-10.1); CHLORIDE 101 mmol/L (98-107)
[2020-06-04 06:36] LABS: BASOPHILS % (AUTO) 0 % (0-1); EOSINOPHILS # (AUTO) 0.04 x10^3/uL (0-0.4); EOSINOPHILS % (AUTO) 1 % (1-7); LYMPHOCYTES # (AUTO) 0.36 x10^3/uL (1-3.4); LYMPHOCYTES % (AUTO) 5 % (22-44); MD SCAN; MONOCYTES # (AUTO) 0.38 x10^3/uL (0.2-0.8); MONOCYTES % (AUTO) 5 % (2-9); NEUTROPHILS # (AUTO) 7.14 x10^3/uL (1.8-6.8); NEUTROPHILS % (AUTO) 90 % (42-75)
[2020-06-04 08:23] VITALS: BP 111/64
[2020-06-04] MEDS: MIDODRINE 5 MG TABLET PO SCH ×3 (08:29→20:33)
[2020-06-04] MEDS: MORPHINE SULFATE 4 MG/ML, 1ML IVPush PRN (11:23)
[2020-06-04 14:00] VITALS: BP 105/60
[2020-06-04] MEDS ORDERED: SIMETHICONE 125 MG CHEW TAB PO PRN (14:30)
[2020-06-04] MEDS: ENOXAPARIN 40 MG/0.4 ML SQ SCH (16:00)
[2020-06-04] MEDS: FERROUS SULFATE 325 MG TABLET PO SCH (16:00)
[2020-06-04 18:57] VITALS: BP 107/62
[2020-06-04] MEDS: OLANZAPINE 10 MG TABLET PO SCH (20:34)
[2020-06-04] MEDS: DIPHENHYDRAMINE 50 MG/ML, 1ML IVPush PRN (22:29)
[2020-06-05 00:53] VITALS: BP 110/59
[2020-06-05] MEDS: ALBUMIN HUMAN 25% 100 ML IV SCH ×3 (00:59→15:48)
[2020-06-05] MEDS: morphine SULFATE 10 MG/ML, 1ML IVPush PRN ×7 (01:06→20:50)
[2020-06-05] MEDS: GABAPENTIN 300 MG CAPSULE PO SCH ×4 (07:03→20:51)
[2020-06-05 08:09] VITALS: BP 117/74
[2020-06-05] MEDS: MIDODRINE 5 MG TABLET PO SCH ×3 (09:21→20:54)
[2020-06-05 12:30] VITALS: BP 111/63
[2020-06-05] MEDS: ENOXAPARIN 40 MG/0.4 ML SQ SCH (15:41)
[2020-06-05 19:54] VITALS: BP 117/63
[2020-06-05] MEDS: OLANZAPINE 10 MG TABLET PO SCH (20:51)
[2020-06-06] MEDS: DIPHENHYDRAMINE 50 MG/ML, 1ML IVPush PRN (00:16)
[2020-06-06] MEDS: morphine SULFATE 10 MG/ML, 1ML IVPush PRN ×5 (00:17→15:46)
[2020-06-06] MEDS: ALBUMIN HUMAN 25% 100 ML IV SCH ×2 (00:17→08:23)
[2020-06-06 02:30] VITALS: BP 120/66
[2020-06-06] MEDS: GABAPENTIN 300 MG CAPSULE PO SCH ×2 (06:00→11:12)
[2020-06-06 06:33] VITALS: BP 123/70
[2020-06-06] MEDS: MIDODRINE 5 MG TABLET PO SCH (08:24)
== END 2020-06-06 16:50 | disposition hospice, home (50) | DRG 469 ==
LOC: ED 12:11 → EDIP 12:50 → 4NW 13:52 → 4WST 06-01 20:49 → 4NW 06-02 23:39
PROVIDERS: ADMIT Family Medicine; ATTEND Family Medicine
PROC: 0W9G3ZZ Drainage of Peritoneal Cavity, Percutaneous Approach (ICD-10-PCS; principal; 2020-06-03)
DX: N17.0 Acute kidney failure with tubular necrosis (principal); E43 Unspecified severe protein-calorie malnutrition; E86.0 Dehydration; E86.1 Hypovolemia; E87.1 Hypo-osmolality and hyponatremia; D64.9 Anemia, unspecified; R18.8 Other ascites; R62.7 Adult failure to thrive; Z66 Do not resuscitate; C49.9 Malignant neoplasm of connective and soft tissue, unspecified; Z51.5 Encounter for palliative care; R00.0 Tachycardia, unspecified; R06.03 Acute respiratory distress; Z92.21 Personal history of antineoplastic chemotherapy; Z68.31 Body mass index [BMI] 31.0-31.9, adult
CPT/HCPCS: 36415; 49083; 71045; 71275; 80048; 80053; 81001; 82607; 83605; 84145; 84484; 85025; 85610; 87040; 87077; 87086; 87186; 93005; 93970; G0378; J1650; J2405; P9047; Q9967; J1200; J2270; J7030; J7040; J7120; Q0163